=== PATIENT | female | born 1950 | race Caucasian/White ===

== ENCOUNTER 2021-01-17 08:45 | Outpatient (REF) | payer MEDICARE, SELFPAY ==
[2021-01-17 10:03] LABS: MANUAL DIFF FLAG NO
[2021-01-17 10:13] LABS: Basophils Percent Auto 0.4 % (0-2); Eosinophils Absolute Auto 0.2 X10*3/uL (0.0-0.4); Hematocrit 36.8 % (37-47); Hemoglobin 12.5 g/dl (12.0-16.0); Imm Gran Abs Auto 0.01 X10*3/uL (0.00-0.03); Imm Gran Pct Auto 0.2 % (0.0-0.4); Lymphocytes Absolute Auto 1.1 X10*3/uL (1.2-4.9); Mean Corpuscular Hemoglobin 34.2 pg (27.0-33.0); Mean Corpuscular Volume 100.5 fL (80-98); Monocytes Absolute Auto 0.5 X10*3/uL (0.1-1.2); Monocytes Percent Auto 10.4 % (2-11); Platelet Count 162 X10*3/uL (160-400); Red Blood Count 3.66 X10*6/uL (4.20-5.50); Red Cell Distribution Width 12.2 % (11.0-16.0); White Blood Count 4.8 X10*3/uL (4.8-10.8)
[2021-01-17 10:24] LABS: Alanine Aminotransferase 20 U/L (0-31); Albumin Level 4.6 g/dL (3.5-5.0); Alkaline Phosphatase 41 U/L (39-117); Anion Gap 15 (12-20); Aspartate Amino Transferase 21 U/L (5-31); Bilirubin Direct 0.4 mg/dL (0.0-0.5); Bilirubin Total 0.8 mg/dL (0.0-1.0); Blood Urea Nitrogen 6 mg/dL (9-16); Carbon Dioxide 29 mmol/L (22-29); Chloride 94 mmol/L (96-108); Estimated Glomerular Filt Rate > 60; Glucose Random 105 mg/dL (60-115); Potassium 4.6 mmol/L (3.3-5.1); Sodium 133 mmol/L (135-145); Total Protein 6.9 g/dL (6.5-8.0)
[2021-01-17 10:37] LABS: Magnesium 1.4 mg/dL (1.6-2.6)
[2021-01-17 10:44] LABS: Thyroid Stimulating Hormone 1.13 uIU/mL (0.32-4.0)
[2021-01-17 10:46] LABS: Glucose Urine UA NEG (NEG); Leukocyte Esterase Urine 1+ (NEG); Nitrite Urine NEG (NEG); PH 7.5 (5.0-8.0); Urine Blood NEG (NEG); Urine Ketones NEG (NEG); Urine Protein NEG (NEG-TRACE)
[2021-01-17 10:49] LABS: Appearance Urine CLEAR; Color Urine YELLOW
[2021-01-17 11:03] LABS: Bacteria Urine 2+ /LPF; RBC Urine 0 /HPF (0); Squamous Epithelial Cell Urine 3+ /LPF
== END 2021-01-17 08:46 | disposition home or self-care (01) ==
LOC: HO.LAB 08:45
PROVIDERS: PCP Internal Medicine; Visit Provider Internal Medicine Cardiovascular Disease
DX: I25.10 Atherosclerotic heart disease of native coronary artery without angina pectoris (principal); I10 Essential (primary) hypertension; E78.2 Mixed hyperlipidemia; E11.9 Type 2 diabetes mellitus without complications
CPT/HCPCS: 36415; 80051; 80076; 81001; 82565; 82947; 83735; 84443; 84520; 85025

== ENCOUNTER 2021-04-19 15:28 | Emergency (ER) | payer MEDICARE, SELFPAY ==
[2021-04-19 15:37] VITALS: BP 174/93; PULSE 74; RESP 18; TEMP 36.9; O2SAT 98; BMI 24.2
--- NOTE | 2021-04-19 16:16 | ECG_ITS ---
Test Reason : ABNORMAL LAB Blood Pressure : / mmHG Vent. Rate : 071 BPM Atrial Rate : 071 BPM P-R Int : 194 ms QRS Dur : 080 ms QT Int : 386 ms P-R-T Axes : 078 030 067 degrees QTc Int : 419 ms Normal sinus rhythm Normal ECG When compared with ECG of 30-JUL-2018 16:03, No significant change was found Referred By: Marcie Curtis Electronically Signed By:ELEONORA TAN
--- NOTE | 2021-04-19 16:19 | ED_ITS ---
HPI - Recheck/Abnormal Lab/Rx General Chief Complaint: Recheck/Abnormal Lab/Rx Stated Complaint: abnormal labs Time Seen by Provider: 04/19/21 16:10 Source: patient Mode of arrival: ambulatory History of Present Illness HPI narrative: 70-year-old female with a past medical history of GERD, HTN, HLD, sent in by PCP for hyperkalemia noted to be 8.5 on outpatient labs today. Patient denies symptoms at this time. Reports was being seen for routine visit. Denies CP/SOB, abdominal pain, nausea /vomiting, diarrhea, fever, chills, numbness, tingling, weakness complaint: abnormal lab Related Data Allergies Allergy/AdvReac Type Severity Reaction Status Date / Time No Known Allergies Allergy Verified 04/19/21 15:37 Review of Systems Review of Systems: Constitutional: No Fever, No Chills, No Fatigue, No Malaise Eyes: No Eye Pain, No Vision Changes Cardiovascular: No Chest Pain, No SOB, No Edema, No Palpitations Respiratory: No Cough, No Sputum, No Wheezing, No Smoke Exposure, No Dyspnea Gastrointestinal: No Nausea, No Vomiting, No Diarrhea, No Constipation, No Abdominal pain Genitourinary: No Dysuria, No Urinary Frequency Musculoskeletal: No joint pain, No Myalgias Skin: No Skin Lesions, No rash Neuro: No Weakness, No Numbness, No Paresthesias, No Headache Yes all other systems are reviewed and are negative [facility] Past Medical History Attestation statement: The following information was validated with the patient. Medical History (Updated 04/19/21 @ 17:43 by ALANNA Gipson) GERD (gastroesophageal reflux disease) High blood pressure High cholesterol Social History Social History Advance Directives: No Advance Directives Information Provided: No Physical Exam Vital Signs: Vital Signs: Last Vital Signs Temp 98.5 F 04/19/21 15:37 Pulse 74 04/19/21 15:37 Resp 18 04/19/21 15:37 BP 174/93 H 04/19/21 15:37 Pulse Ox 98 04/19/21 15:37 Body Mass Index 24.2 Const: General: cooperative, healthy appearing and no acute distress Orientation/consciousness: patient oriented x3 Limitations: no limitations HENMT: Head: Yes normal to inspection Ears: hearing grossly normal bilaterally General nose exam: Normal external nose present Face and sinus: Yes normal facial exam Eyes: General: appearance normal, both eyes and all related structures EOM: EOMs intact bilaterally Neck: Neck: Yes normal visual inspection and Yes no meningeal signs Resp: Effort & Inspection: normal respiratory effort Auscultation: clear to auscultation bilaterally, no rales, no rhonchi and no wheezes Cardio: Rate: regular rate Heart sounds: S1 normal heart sound present and S2 normal heart sound present GI: Inspection: Yes normal to inspection Palpation (GI): Soft to palpation, nontender, no guarding and not rigid Skin: Rashes: no rashes Wounds: no wounds Neuro: General: patient oriented x3, gait normal, tone normal and no meningeal signs Gait exam (Neuro): Normal gait present Extrem: General: Yes normal to inspection Course Course Course Narrative: - H&H stable, chronic hyponatremia. Potassium WNL. Magnesium low 1.4 >> IV repletion ordered results discussed with patient including worrisome signs and symptoms and strict return precautions, she verbalized understanding feel safe for discharge home MDM - Recheck/Abnormal Lab/Rx MDM Narrative Medical decision making narrative: 70-year-old female with a past medical history of GERD, HTN, HLD, sent in by PCP for hyperkalemia noted to be 8.5 on outpatient labs today. On exam VSS, NAD, well appearing, nontoxic, asymptomatic at this time. No history of renal failure. Possibly from Losartan. 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 Lab Data Attestation: I reviewed the patient's lab results. Result diagrams: 04/19/21 16:24 04/19/21 16:24 Labs: Lab Results 04/19/21 04/19/21 Range/Units 16:24 16:24 WBC 4.5 L (4.8-10.8) X10*3/uL RBC 3.24 L (4.20-5.50) X10*6/uL Hgb 11.1 L (12.0-16.0) g/dl Hct 32.0 L (37-47) % MCV 98.8 H (80-98) fL MCH 34.3 H (27.0-33.0) pg MCHC 34.7 (31.0-35.0) g/dl RDW 12.4 (11.0-16.0) % Plt Count 146 L (160-400) X10*3/uL MPV 10.1 (9.4-12.3) fL Immature Gran % (Auto) 0.2 (0.0-0.4) % Neut % (Auto) 54.1 (45-73) % Lymph % (Auto) 31.1 (20-40) % [place] % (Auto) 10.4 (2-11) % Eos % (Auto) 4.0 (0-4) % Baso % (Auto) 0.2 (0-2) % Lymph # (Auto) 1.4 (1.2-4.9) X10*3/uL [place] # (Auto) 0.5 (0.1-1.2) X10*3/uL Eos # (Auto) 0.2 (0.0-0.4) X10*3/uL Baso # (Auto) 0.0 (0.0-0.2) X10*3/uL Abs Immat Gran (auto) 0.01 (0.00-0.03) X10*3/uL Absolute Neuts (auto) 2.4 (2.0-8.3) X10*3/uL Absolute Nucleated RBC 0.000 (0.0-0.012) X10*3/uL Nucleated RBC % (auto) 0.0 (0.0-0.2) /100WBC Sodium 126 L (135-145) mmol/L Potassium 4.2 (3.3-5.1) mmol/L Chloride 91 L (96-108) mmol/L Carbon Dioxide 21 L (22-29) mmol/L Anion Gap 18 (12-20) BUN 6 L (9-16) mg/dL Creatinine 0.64 (0.5-1.4) mg/dL Estim Creat Clear Calc 63.3 Estimated GFR > 60 Random Glucose 74 (60-115) mg/dL Calcium 9.3 (8.4-10.2) mg/dL Magnesium 1.4 L* (1.6-2.6) mg/dL Total Bilirubin 0.6 (0.0-1.0) mg/dL Direct Bilirubin 0.3 (0.0-0.5) mg/dL AST 27 (5-31) U/L ALT 22 (0-31) U/L Alkaline Phosphatase 39 (39-117) U/L Total Protein 6.9 (6.5-8.0) g/dL Albumin 4.6 (3.5-5.0) g/dL ECG Data Attestation: I personally reviewed and interpreted this ECG as follows: ECG interpretation date: 04/19/21 ECG interpretation time: 16:34 Interpretation: EKG normal sinus rhythm 3-71. QTC 419. Nonischemic-no STEMI Discharge Plan Discharge Clinical Impression: Chronic hyponatremia, Hypomagnesemia Patient Disposition: Home, Self-Care Instructions: Hypomagnesemia (ED) Additional Instructions: your magnesium was slightly low today, you were given repletion through the IV otherwise her blood work is at her baseline Continue to take her home prescribed medications You should follow-up with her primary care doctor to have repeat blood work in a week if you develop chest pain, shortness of breath, numbness, tingling, weakness, diarrhea or vomiting please return to the ED Referrals: Carisa Orr MD [Primary Care Provider] - 5 days
[2021-04-19] MEDS: 0.9 % Sodium Chloride 1,000 ML 999 ML IVCONT (16:25)
[2021-04-19 16:34] LABS: MANUAL DIFF FLAG NO
[2021-04-19 16:36] LABS: Basophils Percent Auto 0.2 % (0-2); Eosinophils Absolute Auto 0.2 X10*3/uL (0.0-0.4); Hemoglobin 11.1 g/dl (12.0-16.0); Imm Gran Abs Auto 0.01 X10*3/uL (0.00-0.03); Imm Gran Pct Auto 0.2 % (0.0-0.4); Lymphocytes Absolute Auto 1.4 X10*3/uL (1.2-4.9); Lymphocytes Percent Auto 31.1 % (20-40); Mean Corpuscular HGB Conc 34.7 g/dl (31.0-35.0); Mean Corpuscular Hemoglobin 34.3 pg (27.0-33.0); Mean Corpuscular Volume 98.8 fL (80-98); Mean Platelet Volume 10.1 fL (9.4-12.3); Monocytes Absolute Auto 0.5 X10*3/uL (0.1-1.2); Monocytes Percent Auto 10.4 % (2-11); Neutrophils Absolute Auto 2.4 X10*3/uL (2.0-8.3); Neutrophils Percent Auto 54.1 % (45-73); Platelet Count 146 X10*3/uL (160-400); Red Blood Count 3.24 X10*6/uL (4.20-5.50); Red Cell Distribution Width 12.4 % (11.0-16.0); White Blood Count 4.5 X10*3/uL (4.8-10.8)
[2021-04-19 17:01] LABS: Alanine Aminotransferase 22 U/L (0-31); Albumin Level 4.6 g/dL (3.5-5.0); Alkaline Phosphatase 39 U/L (39-117); Anion Gap 18 (12-20); Aspartate Amino Transferase 27 U/L (5-31); Bilirubin Direct 0.3 mg/dL (0.0-0.5); Bilirubin Total 0.6 mg/dL (0.0-1.0); Blood Urea Nitrogen 6 mg/dL (9-16); Calcium 9.3 mg/dL (8.4-10.2); Carbon Dioxide 21 mmol/L (22-29); Chloride 91 mmol/L (96-108); Creatinine Clr Calc Pharmacy 63.3; Estimated Glomerular Filt Rate > 60; Glucose Random 74 mg/dL (60-115); Magnesium 1.4 mg/dL (1.6-2.6); Potassium 4.2 mmol/L (3.3-5.1); Sodium 126 mmol/L (135-145); Total Protein 6.9 g/dL (6.5-8.0)
[2021-04-19] MEDS: Magnesium Sulfate/H2O 2 GM/50 ML PIGGYBACK IV (17:09)
[2021-04-19 18:00] VITALS: BP 130/84; PULSE 84; RESP 18; O2SAT 100
== END 2021-04-19 18:16 | disposition home or self-care (01) ==
PROVIDERS: Physician Assistant; Emergency Provider Emergency Medicine; PCP Internal Medicine
DX: E87.1 Hypo-osmolality and hyponatremia (principal); E83.42 Hypomagnesemia; E87.5 Hyperkalemia; I10 Essential (primary) hypertension
CPT/HCPCS: 36415; 80048; 80076; 83735; 85025; 93005; 96361; 96365; 96366; 99284; J3475

== ENCOUNTER 2021-05-08 15:29 | Emergency (ER) | payer MEDICARE, SELFPAY ==
--- NOTE | 2021-05-08 | ECG_ITS ---
Test Reason : ABNORMAL LABS Blood Pressure : / mmHG Vent. Rate : 078 BPM Atrial Rate : 078 BPM P-R Int : 196 ms QRS Dur : 080 ms QT Int : 366 ms P-R-T Axes : 060 038 070 degrees QTc Int : 417 ms Normal sinus rhythm Normal ECG When compared with ECG of 19-APR-2021 16:34, No significant change was found Referred By: Generic ED Physician Electronically Signed By:
[2021-05-08 15:55] VITALS: BP 163/77; PULSE 80; RESP 18; TEMP 37; O2SAT 99; BMI 25.3
[2021-05-08 17:45] LABS: MANUAL DIFF FLAG NO
[2021-05-08 17:52] LABS: Basophils Percent Auto 0.2 % (0-2); Eosinophils Absolute Auto 0.2 X10*3/uL (0.0-0.4); Eosinophils Percent Auto 5.5 % (0-4); Hematocrit 31.6 % (37-47); Imm Gran Abs Auto 0.01 X10*3/uL (0.00-0.03); Imm Gran Pct Auto 0.2 % (0.0-0.4); Lymphocytes Absolute Auto 1.3 X10*3/uL (1.2-4.9); Lymphocytes Percent Auto 30.3 % (20-40); Mean Corpuscular HGB Conc 34.8 g/dl (31.0-35.0); Mean Corpuscular Hemoglobin 34.9 pg (27.0-33.0); Mean Corpuscular Volume 100.3 fL (80-98); Mean Platelet Volume 9.8 fL (9.4-12.3); Monocytes Absolute Auto 0.5 X10*3/uL (0.1-1.2); Monocytes Percent Auto 11.1 % (2-11); Neutrophils Absolute Auto 2.2 X10*3/uL (2.0-8.3); Neutrophils Percent Auto 52.7 % (45-73); Platelet Count 146 X10*3/uL (160-400); Red Blood Count 3.15 X10*6/uL (4.20-5.50); Red Cell Distribution Width 12.4 % (11.0-16.0); White Blood Count 4.2 X10*3/uL (4.8-10.8)
[2021-05-08 18:14] LABS: Alanine Aminotransferase 14 U/L (0-31); Albumin Level 4.4 g/dL (3.5-5.0); Alkaline Phosphatase 43 U/L (39-117); Anion Gap 15 (12-20); Aspartate Amino Transferase 19 U/L (5-31); Bilirubin Total 0.3 mg/dL (0.0-1.0); Blood Urea Nitrogen 6 mg/dL (9-16); Calcium 9.1 mg/dL (8.4-10.2); Carbon Dioxide 26 mmol/L (22-29); Chloride 95 mmol/L (96-108); Creatinine Clr Calc Pharmacy 49.4; Estimated Glomerular Filt Rate > 60; Glucose Random 101 mg/dL (60-115); Potassium 4.9 mmol/L (3.3-5.1); Sodium 131 mmol/L (135-145); Total Protein 6.6 g/dL (6.5-8.0)
[2021-05-08 18:33] LABS: Magnesium 1.5 mg/dL (1.6-2.6)
[2021-05-08 20:18] VITALS: BP 191/95; PULSE 73; RESP 16; O2SAT 99
--- NOTE | 2021-05-08 20:24 | ED_ITS ---
HPI - General Adult General Chief complaint: Recheck/Abnormal Lab/Rx Stated complaint: abnormal labs Time Seen by Provider: 05/08/21 18:16 Source: patient and family Mode of arrival: ambulatory Limitations: no limitations History of Present Illness HPI narrative: 71-year-old female came in from PCP office for evaluation of low potassium. Patient otherwise has no complain in the emergency department, patient takes medication for high blood pressure, patient did not take her medication today. Blood pressure in the emergency department found to be high but no headache, no blurry vision, no chest pain, no abdominal pain. Patient was advised to take her medication when she gets home. Related Data Allergies Allergy/AdvReac Type Severity Reaction Status Date / Time No Known Allergies Allergy Verified 04/19/21 15:37 Review of Systems Review of Systems: All other systems are reviewed and are negative Constitutional: Reports as per HPI and Reports no additional constitutional complaints Eyes: Reports as per HPI and Reports no additional eye complaints Reports system reviewed and no additional complaints, except as documented Cardiovascular: Reports as per HPI and Reports no additional cardiovascular complaints Respiratory: Reports as per HPI and Reports no additional respiratory complaints Gastrointestinal: Reports as per HPI and Reports no additional gastrointestinal complaints Genitourinary: Reports no additional female genitourinary complaints Musculoskeletal: Reports no additional musculoskeletal complaints Skin/Breast: Reports system reviewed and no additional complaints, except as docu Psychiatric: Reports no additional psychiatric complaints Endocrine: Reports no additional endocrine complaints Hematologic/Lymphatic: Reports no additional hematologic/lymphatic complaints Allergic/Immunologic: Reports no additional allergic/immunologic complaints Reports system reviewed and no additional complaints, except as documented and Reports Abnormal speech present [facility] Past Medical History Medical History GERD (gastroesophageal reflux disease) High blood pressure High cholesterol Social History Social History Advance Directives: No Advance Directives Information Provided: Yes Physical Exam Vital Signs: Vital Signs: Last Vital Signs Temp 98.6 F 05/08/21 15:55 Pulse 73 05/08/21 20:18 Resp 16 05/08/21 20:18 BP 191/95 H 05/08/21 20:18 Pulse Ox 99 05/08/21 20:18 Body Mass Index 25.3 Vital signs have been reviewed as appeared to be correct. Blood pressure elevated. Heart rate normal. Respiration rate normal. Temperature normal. Oxygen saturation normal. Appearance: Alert. Oriented X3. No acute distress. Head: Normal external exam. Normocephalic. Atraumatic. No [place] signs noted. No raccoon eyes noted Eyes: PERRLA. EOMI. Conjunctiva and sclera normal. Eyelids normal. ENT: TM's Normal. Pharynx normal. Uvula midline. Moist mucous membranes. No trismus noted. No drooling noted. No muffled voice noted. Neck: Normal inspection. Neck supple. FROM. No adenopathy. Thyroid Normal. No meningeal signs. No neck mass noted. CVS: Normal heart rate and rhythm. Heart sound normal. No murmurs noted. Pulses normal throughout. Respiratory: No respiratory distress. Painless inspiration. Breath sounds normal. No wheezes/rales/rhonchi noted. Chest nontender. No accessory muscle usage noted or decreased air movement noted. Abdomen: Soft and nontender. Bowel sounds normal in all 4 quadrants. No distention noted. No organomegaly noted. No visible injury noted. Back: No CVA tenderness. Full range of motion noted. Skin: Skin warm and dry. Normal skin color. Normal skin turgor. No rashes/lesions/lacerations noted. Extremities: No lower extremity edema. Extremities exhibit normal range of motion. Extremities nontender. Neuro: Oriented X 3. No motor deficit. No sensory deficit. Reflexes normal. Course Course Course Narrative: Assessment and plan. Came in for evaluation of hypokalemia. Normal potassium, no EKG changes, slightly low magnesium which was replaced by p.o. magnesium in the emergency department. Mild hyponatremia which appeared to be chronic. High blood pressure with no symptoms patient was instructed to take her medication when she gets off Medical Decision Making Lab Data Lab results reviewed: Yes I reviewed the patient's lab results. Result diagrams: 05/08/21 17:40 05/08/21 17:40 Labs: Lab Results 05/08/21 05/08/21 Range/Units 17:40 17:40 WBC 4.2 L (4.8-10.8) X10*3/uL RBC 3.15 L (4.20-5.50) X10*6/uL Hgb 11.0 L (12.0-16.0) g/dl Hct 31.6 L (37-47) % MCV 100.3 H (80-98) fL MCH 34.9 H (27.0-33.0) pg MCHC 34.8 (31.0-35.0) g/dl RDW 12.4 (11.0-16.0) % Plt Count 146 L (160-400) X10*3/uL MPV 9.8 (9.4-12.3) fL Immature Gran % (Auto) 0.2 (0.0-0.4) % Neut % (Auto) 52.7 (45-73) % Lymph % (Auto) 30.3 (20-40) % [place] % (Auto) 11.1 H (2-11) % Eos % (Auto) 5.5 H (0-4) % Baso % (Auto) 0.2 (0-2) % Lymph # (Auto) 1.3 (1.2-4.9) X10*3/uL [place] # (Auto) 0.5 (0.1-1.2) X10*3/uL Eos # (Auto) 0.2 (0.0-0.4) X10*3/uL Baso # (Auto) 0.0 (0.0-0.2) X10*3/uL Abs Immat Gran (auto) 0.01 (0.00-0.03) X10*3/uL Absolute Neuts (auto) 2.2 (2.0-8.3) X10*3/uL Absolute Nucleated RBC 0.000 (0.0-0.012) X10*3/uL Nucleated RBC % (auto) 0.0 (0.0-0.2) /100WBC Sodium 131 L (135-145) mmol/L Potassium 4.9 (3.3-5.1) mmol/L Chloride 95 L (96-108) mmol/L Carbon Dioxide 26 (22-29) mmol/L Anion Gap 15 (12-20) BUN 6 L (9-16) mg/dL Creatinine 0.86 (0.5-1.4) mg/dL Estim Creat Clear Calc 49.4 Estimated GFR > 60 Random Glucose 101 D (60-115) mg/dL Calcium 9.1 (8.4-10.2) mg/dL Magnesium 1.5 L (1.6-2.6) mg/dL Total Bilirubin 0.3 (0.0-1.0) mg/dL AST 19 (5-31) U/L ALT 14 (0-31) U/L Alkaline Phosphatase 43 (39-117) U/L Total Protein 6.6 (6.5-8.0) g/dL Albumin 4.4 (3.5-5.0) g/dL ECG Data Interpretation: Normal sinus rhythm at 76 beats per minute, normal intervals, normal axis deviation, no ST-T changes. Discharge Plan Discharge Clinical Impression: Low blood magnesium Hypertension Qualifiers: Hypertension type: unspecified Qualified Code(s): I10 - Essential (primary) hypertension Patient Disposition: Home, Self-Care Instructions: Hypomagnesemia (ED) Additional Instructions: Take your blood pressure medication when at home. Check with your primary doctor to repeat your electrolytes in 1 week. Referrals: Carisa Orr MD [Primary Care Provider] - 2 days
--- NOTE | 2021-05-08 20:26 | PC.NURSE ---
BP 191/95 MD aware, at bedside
[2021-05-08] MEDS: Magnesium Oxide 400 MG TABLET 800 MG PO (20:49)
== END 2021-05-08 20:51 | disposition home or self-care (01) ==
PROVIDERS: Emergency Provider Emergency Medicine; PCP Internal Medicine
DX: E87.6 Hypokalemia (principal); I10 Essential (primary) hypertension; E78.5 Hyperlipidemia, unspecified; Z79.899 Other long term (current) drug therapy
CPT/HCPCS: 36415; 80053; 83735; 85025; 93005; 99284

== ENCOUNTER 2021-10-10 09:59 | Outpatient (REF) | payer MEDICARE, SELFPAY ==
[2021-10-10 11:22] LABS: COVID-19 Test Negative (Negative)
== END 2021-10-10 10:00 | disposition home or self-care (01) ==
LOC: HO.LAB 09:59
PROVIDERS: Visit Provider Internal Medicine
DX: Z20.822 Contact with and (suspected) exposure to COVID-19 (principal)
CPT/HCPCS: 36415; 87635; C9803

== ENCOUNTER 2022-02-12 08:01 | Day surgery (SDC) | payer MEDICARE, OTHER, SELFPAY ==
[2022-02-06 13:08] VITALS: BMI 25.0
--- NOTE | 2022-02-09 10:36 | MHC.SHP ---
Pre-Procedural Eval Section A Date of Service: 02/09/22 The patient is an INPATIENT: No Changes since office visit: No Cold of Flu in the past 2 weeks, No New Medical Problems, No Changes in Medication and No Patient answered all questions The History & Physical has been completed within 30 days and I have reviewed it.: Yes Section B Chief Complaint: Age-related nuclear cataract, right eye Allergies: Allergies Allergy/AdvReac Type Severity Reaction Status Date / Time lisinopril AdvReac Cough Verified 02/06/22 13:02 Plan Diagnosis/Plan: Unchanged I have reviewed the history and physical and performed a pertinent physical examination on my patient. No changes have occurred unless specified.
--- NOTE | 2022-02-09 12:17 | HO.ANESPROP2 ---
Documented by User: Pattie Larson NP 02/09/22 12:18 HPI - Anesthesia Eval Consult details Narrative: 71yo F for Right Cataract Extraction IOL Insertion PCP Cleared No previous cataract on record [facility] Past Medical History Medical History Allergic rhinitis CAD (coronary artery disease) DM II (diabetes mellitus, type II), controlled GERD (gastroesophageal reflux disease) Glaucoma High blood pressure High cholesterol Osteoarthritis Surgical History Surgical History History of eye surgery History of heart artery stent History of tonsillectomy History of tubal ligation Social History Social History Are you a primary respiratory care program director to a significant other at home: No Do you presently have visiting nurse or other home services: No Patient Tobacco Use Status: Former Tobacco user Quit Date: Age 53 Use of substances other than those prescribed or required for medical reasons: No Have you been hit, kicked, punched, or otherwise hurt by someone within the past year? If so, by whom?: No Are you DNR?: No Advance Directives: No Advance Directives Information Provided: Yes Advance Directives on File: No Recently lost weight without trying: No Eating poorly because of decreased appetite: No Nutrition Risks: No Nutritional Risk Meds Allergies Allergy/AdvReac Type Severity Reaction Status Date / Time lisinopril AdvReac Cough Verified 02/06/22 13:02 Home Medications Medication Instructions Recorded Confirmed Last Taken Type aspirin 81 mg capsule 81 mg PO DAILY 01/25/22 01/25/22 Unknown History atorvastatin 80 mg tablet 1 tab PO DAILY 01/25/22 01/25/22 Unknown History calcium carbonate 600 mg-vitamin 1 tab PO DAILY 01/25/22 01/25/22 Unknown History D3 10 mcg (400 unit) tablet (Calcium 600 + D(3)) carvedilol 12.5 mg tablet 1 tab PO BID 01/25/22 01/25/22 02/12/22 History fluticasone propionate 50 1 spray INTRANASAL BID 01/25/22 01/25/22 Unknown History mcg/actuation nasal spray,suspension losartan 50 mg tablet 1 tab PO DAILY 01/25/22 01/25/22 Unknown History metformin 1,000 mg tablet 1 tab PO BID 01/25/22 01/25/22 Unknown History Exam Exam Date and Time: February 09, 2022 1217 Height,Weight and Vital Signs: Height 5 ft Weight 58.06 kg Assessment and Plan Assessment Anesthesia Assessment: Chart Reviewed Documented by User: Adi Montano MD 02/12/22 08:37 [facility] Past Medical History Medical History Allergic rhinitis CAD (coronary artery disease) DM II (diabetes mellitus, type II), controlled GERD (gastroesophageal reflux disease) Glaucoma High blood pressure High cholesterol Osteoarthritis Family History Family history of problems with anesthesia: No Surgical History Surgical History History of eye surgery History of heart artery stent History of tonsillectomy History of tubal ligation History of Problems with Anesthesia: No Social History Social History Are you a primary respiratory care program director to a significant other at home: No Do you presently have visiting nurse or other home services: No Patient Tobacco Use Status: Former Tobacco user Quit Date: Age 53 Use of substances other than those prescribed or required for medical reasons: No Have you been hit, kicked, punched, or otherwise hurt by someone within the past year? If so, by whom?: No Are you DNR?: No Advance Directives: No Advance Directives Information Provided: Yes Advance Directives on File: No Recently lost weight without trying: No Eating poorly because of decreased appetite: No Nutrition Risks: No Nutritional Risk Meds Allergies Allergy/AdvReac Type Severity Reaction Status Date / Time lisinopril AdvReac Cough Verified 02/06/22 13:02 Home Medications Medication Instructions Recorded Confirmed Last Taken Type aspirin 81 mg capsule 81 mg PO DAILY 01/25/22 01/25/22 Unknown History atorvastatin 80 mg tablet 1 tab PO DAILY 01/25/22 01/25/22 Unknown History calcium carbonate 600 mg-vitamin 1 tab PO DAILY 01/25/22 01/25/22 Unknown History D3 10 mcg (400 unit) tablet (Calcium 600 + D(3)) carvedilol 12.5 mg tablet 1 tab PO BID 01/25/22 01/25/22 02/12/22 History fluticasone propionate 50 1 spray INTRANASAL BID 01/25/22 01/25/22 Unknown History mcg/actuation nasal spray,suspension losartan 50 mg tablet 1 tab PO DAILY 01/25/22 01/25/22 Unknown History metformin 1,000 mg tablet 1 tab PO BID 01/25/22 01/25/22 Unknown History Exam Airway Mallampati Class: II TM Dist: >3cm Neck ROM: Full Denture: Upper and Lower Loose/Missing/Broken Teeth: Yes Heart: [id number] Lungs: cta b/l Assessment and Plan Assessment Anesthesia Assessment: Anesthesia Plan Discussed Final Anesthetic Review Family History of Problems with Anesthesia: No History of Problems with Anesthesia: No NPO: Yes ASA Class: III Final Preanesthetic Review: No Changes in Pt Med Stat, Meds/Allgs Chart Reviewed, Consent Obtained/Reviewed and Anes Risks/Benef Reviewed Patient Risk: Intermediate Procedure Risk: Low Assessment/Block/Sedation in SS: Assess/Block/Sedation-SS Anesthetic Plan Anesthetic Plan: MAC: and Agree w/ Assess. and Plan Disposition: Standard PACU
[2022-02-12 08:24] VITALS: BP 150/91; PULSE 69; RESP 19; TEMP 36.1; O2SAT 96
[2022-02-12 08:34] LABS: Glucose, Whole Blood 93 mg/dL (60-115)
[2022-02-12] MEDS: Tetracaine HCl/PF 0.5% Oph Sol 4 ML DROPS 1 DROP EYE-RIGHT (08:38)
[2022-02-12] MEDS: Phenylephrine HCL 2.5% Oph SoL 2 ML BOTTLE 1 DROP EYE-RIGHT ×3 (08:39→08:43)
[2022-02-12] MEDS: Tropicamide 1 % Ophth Sol 3 ML BTL 1 DROP EYE-RIGHT ×3 (08:39→08:42)
[2022-02-12] MEDS: Lactated Ringers 500 ML 50 ML IV (08:40)
--- NOTE | 2022-02-12 10:12 | HO.PNOPHT ---
Ophthalmology Procedure Procedure Date of Service: 02/12/22 Ophthalmology Viscoelastic: Sabra Chunt Dual Pack Pro Ophthalmology Lenses: TECYOLY [id number] (26) Procedure Notes: PREOPERATIVE DIAGNOSIS: Decreased visual acuity right eye secondary to cataract POSTOPERATIVE DIAGNOSIS: Same PROCEDURE: Right cataract extraction with intraocular lens insertion SURGEON: Cesar Walker M.D. ANESTHESIA: Topical/MAC ESTIMATED BLOOD LOSS: None COMPLICATIONS: None After obtaining informed consent, the patient was brought to the operating room suite and placed in the supine position. After adequate sedation per anesthesia, topical drops of Tetracaine were given to the right eye. The eye was then prepped and draped in the usual sterile fashion. The operating room microscope was then positioned over the operative eye and a lid speculum placed. A paracentesis was created. Viscoelastic was then instilled into the anterior chamber. A three plane incision was then created temporally, utilizing a 2.85 mm keratome. Capsulotomy forceps were then utilized to create a circular tear capsulotomy. Hydrodissection and hydrodelineation were carried out until adequate mobilization of the nucleus occurred. Phacoemulsification was then utilized to remove the dense central nucleus followed by removal of the cortical material utilizing the automated aspiration irrigation unit. Viscoelastic was instilled into the posterior capsular bag followed by placement of a posterior chamber intraocular lens without difficulty. The residual Viscoelastic was then removed utilizing the automated IA machine. The wound was checked and found to be watertight. The patient tolerated the procedure well and the lid speculum was removed. Intracameral injection of Vigamox 0.1 mL followed by a subtenon injection of Kenalog-40 0.2 mL were administered. The patient will be seen in the a.m.
[2022-02-12 10:41] VITALS: BP 121/65; PULSE 69; RESP 18; TEMP 36.9; O2SAT 96
== END 2022-02-12 11:00 | disposition home or self-care (01) ==
PROVIDERS: PCP Internal Medicine; Visit Provider Ophthalmology
PROC: (CPT 66985; principal; 2022-02-12 10:20)
DX: H25.11 Age-related nuclear cataract, right eye (principal); H54.7 Unspecified visual loss; H35.3111 Nonexudative age-related macular degeneration, right eye, early dry stage; H40.9 Unspecified glaucoma; I25.10 Atherosclerotic heart disease of native coronary artery without angina pectoris; Z98.61 Coronary angioplasty status; I10 Essential (primary) hypertension; E11.9 Type 2 diabetes mellitus without complications; E78.00 Pure hypercholesterolemia, unspecified; Z98.890 Other specified postprocedural states; Z79.84 Long term (current) use of oral hypoglycemic drugs; Z79.899 Other long term (current) drug therapy; Z87.891 Personal history of nicotine dependence
CPT/HCPCS: 66984; 82947; J2250; J3010; J3300; V2632

== ENCOUNTER 2023-01-28 06:47 | Emergency (ER) | payer MEDICARE, OTHER, SELFPAY ==
--- NOTE | ~2023-01-28 | US_ITS ---
EXAMINATION: US VENOUS ULTRASOUND WITH DOPPLER LOWER EXTREMITY, LEFT CLINICAL INFORMATION: Pain COMPARISON: None available. TECHNIQUE: Ultrasound of the deep veins is performed from the hip to the calf with compression sonography and color and pulse Doppler assessment. Spectral analysis with color-flow imaging is performed. FINDINGS: There is normal venous compression and respiratory variation and augmented flow. The visualized common femoral vein, superficial femoral vein, profunda femoral vein, popliteal vein, and the trifurcation region shows no evidence of deep venous thrombosis. There is no significant popliteal fossa cyst. There is a small amount of fluid adjacent to the medial knee. US/US venous duplex LE LT IMPRESSION: No DVT demonstrated in the left lower extremity.
[2023-01-28 07:09] VITALS: BP 149/73; PULSE 58; RESP 16; TEMP 36.9; O2SAT 100; BMI 24.1
[2023-01-28 08:02] LABS: MANUAL DIFF FLAG NO
--- NOTE | 2023-01-28 08:09 | ED.EXTPRO ---
HPI - Extremity Problem General Chief complaint: Extremity Problem Stated complaint: leg pain, body chills Time Seen by Provider: 01/28/23 07:08 Source: patient Mode of arrival: ambulatory Limitations: no limitations History of Present Illness HPI Narrative: 72-year-old female history of hypertension, diabetes came in for evaluation of left foot burning sensation. Symptoms started about 4-5 weeks ago as a constant burning sensation (heating sensation in the left foot) which is constant no exacerbating factor, no relieving factor, no fever or chills, no swelling of the left foot, no recent travel, no history of DVT. Related Data Home Medications Medication Instructions Recorded Confirmed aspirin 81 mg capsule 81 mg PO DAILY 01/25/22 01/25/22 atorvastatin 80 mg tablet 1 tab PO DAILY 01/25/22 01/25/22 calcium carbonate 600 mg-vitamin 1 tab PO DAILY 01/25/22 01/25/22 D3 10 mcg (400 unit) tablet (Calcium 600 + D(3)) carvedilol 12.5 mg tablet 1 tab PO BID 01/25/22 01/25/22 fluticasone propionate 50 1 spray intranasal BID 01/25/22 01/25/22 mcg/actuation nasal spray,suspension losartan 50 mg tablet 1 tab PO DAILY 01/25/22 01/25/22 metformin 1,000 mg tablet 1 tab PO BID 01/25/22 01/25/22 Previous Rx's Medication Instructions Recorded gabapentin 600 mg tablet 600 mg PO DAILY #14 tabs 01/28/23 Allergies Allergy/AdvReac Type Severity Reaction Status Date / Time lisinopril AdvReac Cough Verified 02/06/22 13:02 Review of Systems Review of Systems: All other systems are reviewed and are negative Constitutional: Reports as per HPI and Reports no additional constitutional complaints Eyes: Reports as per HPI and Reports no additional eye complaints Reports system reviewed and no additional complaints, except as documented Cardiovascular: Reports as per HPI and Reports no additional cardiovascular complaints Respiratory: Reports as per HPI and Reports no additional respiratory complaints Gastrointestinal: Reports as per HPI and Reports no additional gastrointestinal complaints Genitourinary: Reports no additional female genitourinary complaints Musculoskeletal: Reports no additional musculoskeletal complaints Skin/Breast: Reports system reviewed and no additional complaints, except as docu Psychiatric: Reports no additional psychiatric complaints Endocrine: Reports no additional endocrine complaints Hematologic/Lymphatic: Reports no additional hematologic/lymphatic complaints Allergic/Immunologic: Reports no additional allergic/immunologic complaints Reports system reviewed and no additional complaints, except as documented and Reports Abnormal speech present [facility] Past Medical History Medical History Allergic rhinitis CAD (coronary artery disease) DM II (diabetes mellitus, type II), controlled GERD (gastroesophageal reflux disease) Glaucoma High blood pressure High cholesterol Osteoarthritis Surgical History History of eye surgery History of heart artery stent History of tonsillectomy History of tubal ligation Social History Social History Are you a primary healthcare network consultant to a significant other at home: No Do you presently have visiting nurse or other home services: No Patient Tobacco Use Status: Former Tobacco user Quit Date: Age 53 Smoked in Last 30 Days: No Use of substances other than those prescribed or required for medical reasons: No Advance Directives: No Advance Directives Information Provided: Yes Physical Exam Vital Signs: Vital Signs: Last Vital Signs Temp 98.5 F 01/28/23 07:09 Pulse 58 01/28/23 07:09 Resp 16 01/28/23 07:09 BP 149/73 H 01/28/23 07:09 Pulse Ox 100 01/28/23 07:09 O2 Del Method Room Air 01/28/23 07:09 BMI result Body Mass Index 24.1 Vital signs have been reviewed as appeared to be correct. Blood pressure normal. Heart rate normal. Respiration rate normal. Temperature normal. Oxygen saturation normal. Appearance: Alert. Oriented X3. No acute distress. Head: Normal external exam. Normocephalic. Atraumatic. No [place] signs noted. No raccoon eyes noted Eyes: PERRLA. EOMI. Conjunctiva and sclera normal. Eyelids normal. ENT: TM's Normal. Pharynx normal. Uvula midline. Moist mucous membranes. No trismus noted. No drooling noted. No muffled voice noted. Neck: Normal inspection. Neck supple. FROM. No adenopathy. Thyroid Normal. No meningeal signs. No neck mass noted. CVS: Normal heart rate and rhythm. Heart sound normal. No murmurs noted. Pulses normal throughout. Respiratory: No respiratory distress. Painless inspiration. Breath sounds normal. No wheezes/rales/rhonchi noted. Chest nontender. No accessory muscle usage noted or decreased air movement noted. Abdomen: Soft and nontender. Bowel sounds normal in all 4 quadrants. No distention noted. No organomegaly noted. No visible injury noted. Back: No CVA tenderness. Full range of motion noted. Skin: Skin warm and dry. Normal skin color. Normal skin turgor. No rashes/lesions/lacerations noted. Extremities: No lower extremity edema. Extremities exhibit normal range of motion. Extremities nontender. Neuro: Oriented X 3. Cranial nerve exam: II-XII are grossly intact No motor deficit. No sensory deficit. Reflexes normal. Course Course Course Narrative: Left foot burning sensation for 4-5 weeks patient is diabetic the likely diagnosis is peripheral neuropathy. Negative workup for DVT or infection will discharge the patient recommend PCP to start patient on gabapentin and closer follow-up with patient's diabetes. Medical Decision Making Differential Diagnosis Differential Diagnoses: The differential diagnosis associated with the presentation includes (DVT, peripheral neuropathy, uncontrolled diabetes, electrolyte disturbance, severe anemia.) Lab Data MDM Lab Attestation statement: I reviewed the patient's lab results. 01/28/23 07:58 01/28/23 07:58 Independent Interpretation I performed an independent interpretation of an: Ultrasound (Left lower extremities ultrasound: No DVT.) Radiology Impression Discussion of test interpretation with radiology: I have reviewed the radiologist's reading. Discharge Plan Discharge Clinical Impression: Peripheral neuropathy Patient Disposition: Home, Self-Care Instructions: Peripheral Neuropathy (ED) Prescriptions: New gabapentin 600 mg tablet 600 mg PO DAILY Qty: 14 0RF No Action losartan 50 mg tablet 1 tab PO DAILY atorvastatin 80 mg tablet 1 tab PO DAILY carvedilol 12.5 mg tablet 1 tab PO BID metformin 1,000 mg tablet 1 tab PO BID fluticasone propionate 50 mcg/actuation spray,suspension 1 spray intranasal BID calcium carbonate-vitamin D3 [Calcium 600 + D(3)] 600 mg-10 mcg (400 unit) Tablet 1 tab PO DAILY aspirin 81 mg Capsule 81 mg PO DAILY
[2023-01-28 08:11] VITALS: BP 131/61; PULSE 58; RESP 14; TEMP 36.9; O2SAT 100
[2023-01-28 08:18] LABS: Anion Gap 15 (12-20); Blood Urea Nitrogen 9 mg/dL (9-16); Calcium 9.6 mg/dL (8.4-10.2); Carbon Dioxide 27 mmol/L (22-29); Chloride 99 mmol/L (96-108); Creatinine Clr Calc Pharmacy 58.6; Estimated Glomerular Filt Rate > 60; Glucose Random 105 mg/dL (60-115); Potassium 4.7 mmol/L (3.3-5.1); Sodium 136 mmol/L (135-145)
[2023-01-28 08:19] LABS: Basophils Percent Auto 0.5 % (0-2); Eosinophils Absolute Auto 0.5 X10*3/uL (0.0-0.4); Eosinophils Percent Auto 8.3 % (0-4); Hemoglobin 12.4 g/dl (12.0-16.0); Imm Gran Abs Auto 0.01 X10*3/uL (0.00-0.03); Imm Gran Pct Auto 0.2 % (0.0-0.4); Lymphocytes Absolute Auto 1.4 X10*3/uL (1.2-4.9); Lymphocytes Percent Auto 24.1 % (20-40); Mean Corpuscular HGB Conc 33.5 g/dl (31.0-35.0); Mean Corpuscular Hemoglobin 31.6 pg (27.0-33.0); Mean Corpuscular Volume 94.4 fL (80.0-98.0); Mean Platelet Volume 10.2 fL (9.4-12.3); Monocytes Absolute Auto 0.6 X10*3/uL (0.1-1.2); Monocytes Percent Auto 10.3 % (2-11); Neutrophils Absolute Auto 3.3 x10*3/uL (2.0-8.3); Neutrophils Percent Auto 56.6 % (45-73); Platelet Count 148 X10*3/uL (160-400); Red Blood Count 3.92 X10*6/uL (4.20-5.50); Red Cell Distribution Width 14.1 % (11.0-16.0); White Blood Count 5.8 X10*3/uL (4.8-10.8)
[2023-01-28] MEDS: Gabapentin 600 MG TABLET PO (09:08)
[2023-01-28 09:42] LABS: Appearance Urine Clear; Color Urine Dark Yellow; Glucose Urine UA Negative (Negative); Leukocyte Esterase Urine Trace (Negative); Nitrite Urine Negative (Negative); PH 8.5 (5.0-9.0); Specific Gravity - Urine 1.015 (1.005-1.025); UMIC TRIGGER UACC YES; Urine Blood Negative (Negative); Urine Ketones Trace mg/dL (Negative); Urine Protein Negative (Neg-Trace)
[2023-01-28 09:45] LABS: Bacteria Urine None Seen (None Seen); Hyaline Casts Urine 0-2 /LPF (0-2); RBC Urine 0-2 /HPF (0-2); Squamous Epithelial Cell Urine 0-2 /HPF (0-2); WBC Urine 0-5 /HPF (0-5)
== END 2023-01-28 11:12 | disposition home or self-care (01) ==
PROVIDERS: Emergency Provider Emergency Medicine
DX: E11.42 Type 2 diabetes mellitus with diabetic polyneuropathy (principal); M79.605 Pain in left leg; I10 Essential (primary) hypertension; E78.5 Hyperlipidemia, unspecified; Z79.82 Long term (current) use of aspirin; Z79.02 Long term (current) use of antithrombotics/antiplatelets; Z79.84 Long term (current) use of oral hypoglycemic drugs; Z79.899 Other long term (current) drug therapy
CPT/HCPCS: 36415; 80048; 81001; 85025; 93971; 99284

== ENCOUNTER 2024-06-18 07:59 | Outpatient (AMB) | payer MEDICARE, SELFPAY ==
--- NOTE | 2024-06-18 08:04 | MHC.OFFVIS ---
Vital Signs 06/18/24 08:06 Height 5 ft 2 in Weight 132 lb BMI 24.1 BP 124/72 Blood Pressure Location Rt brachial Position Sitting Pulse 63 Pulse Source Pulse Oximeter Pulse Oximetry (%) 98 Intake Visit Reasons: ENP-Peripheral neuropathy ? small-fiber neuropathy Intake Note: Patient presents for neuropathy symptoms. patient has pins and needles and swelling in the ankles. she also c/o her legs feeling hot. Allergies lisinopril Adverse Reaction (Verified 06/18/24 08:09) Cough Medication List - Last Reconciled 06/18/24 by RODERICK Fisher amlodipine 5 mg PO DAILY aspirin 81 mg PO DAILY atorvastatin 1 tab PO DAILY calcium carbonate-vitamin D3 600 mg-10 mcg (400 unit) (Calcium 600 + D(3)) 1 tab PO DAILY carvedilol 1 tab PO BID fluticasone propionate 50 mcg/actuation 1 spray intranasal BID gabapentin 300 mg PO TID losartan 1 tab PO DAILY metformin 1 tab PO BID HPI Comments Details: 74-yr-old female presents for neurological evaluation of possible small fiber neuropathy. PMH: diabetes x's many yrs- well-controlled, HTN- well-controlled, a-fib, HLD, CAD, OA, allergic rhinitis, Rosacea, remote h/o hypomagnesia. Pt reports she has been having BLE bottom of foot spasms/discomfort x's ~2yrs. This has not been progressing. Has muscle spasms/cramps in sole of foot, but also ankle and calves- not every night, but at times. Often triggered by stretching. The discomfort is in the sole of the foot, it is difficult to describe, maybe like prickly discomfort but denies pins and needles or creepy crawling sensation. She also feels heat in the distal BLE. In the past she did have ankle swelling. She denies redness. She was started on Gabapentin, and she is not sure if this is helpful or not- but it does diminish the heat sensation. She is worried about long-term effects of Gabapnetin. Nov 2023, BLE EMG/NCS- normal. Recently saw vascular, Dr Dante Hector, and had BLE venous intervention. Denies - numbness, lightheadedness, weakness, skin color changes, skin ulcers/rashes. [facility] Medical History (Updated 06/18/24 @ 16:26 by RODERICK Fisher) Neuropathy Diabetes Osteoarthritis Allergic rhinitis CAD (coronary artery disease) Glaucoma DM II (diabetes mellitus, type II), controlled High cholesterol High blood pressure GERD (gastroesophageal reflux disease) Surgical History History of eye surgery History of heart artery stent History of tubal ligation History of tonsillectomy Social History Are you a primary career services representative to a significant other at home: No Do you presently have visiting nurse or other home services: No Patient Tobacco Use Status: Former Tobacco user Physical Exam Vital Signs: Last Vital Signs Pulse 63 06/18/24 08:06 BP 124/72 06/18/24 08:06 Pulse Ox 98 06/18/24 08:06 BMI result Body Mass Index 24.1 Const General: cooperative and no acute distress Orientation/consciousness: patient oriented x3 HEENT Head: Yes normocephalic Resp Effort & Inspection: normal respiratory effort and able to speak in complete sentences Neuro Other: Able to take several steps on toes and a few steps on heels. BLE/feet- warm to touch. CMS + w/o edema, discoloration. General: patient oriented x3, tone normal, moves all extremities, Normal light touch and pain sensation (normal vibration sensation), CN's II-XI intact bilaterally, normal sensation to monofilament and deep tendon reflexes 2+ bilaterally Gait exam (Neuro): Normal gait present Motor exam (neuro): 5/5 motor strength present throughout Psych Appearance: grossly normal Mental Status: mental status grossly normal Speech and movement: Normal speech and movement present Affect: normal affect Attitude: cooperative Thought process: Normal thought process present Thought content: Normal thought content present Insight: Good insight present (Psych) Assessment & Plan Assessment & Plan (1) Peripheral neuropathic pain: Comment: likely small fiber neuropathy- ? chronic diabetes, which can occur even in well-controlled diabetes. ? vascular effects. Code(s): M79.2 - Neuralgia and neuritis, unspecified Category: Medical (2) Muscle cramps: Code(s): R25.2 - Cramp and spasm Category: Medical Plan Reviewed BLE EMG/NCS- no evidence for large fiber neuropathy. Continue Gabapentin 300mg po tid, as it does appear that she is tolerating it well and having some benefit from use. Check labs for common etiologies of likely small fiber neuropathy. Will request notes from Dr Hector [facility], [address] [facility] [address], [place] [address], Phone:? Pt seen in collaboration w/ Dr Janett Hendricks. Orders: Orders Complete Blood Count Auto Diff Today E11.9 - Type 2 diabetes mellitus without complications, G62.9 - Polyneuropathy, unspecified, I10 - Essential (primary) hypertension Comprehensive Met. Panel Today E11.9 - Type 2 diabetes mellitus without complications, G62.9 - Polyneuropathy, unspecified, I10 - Essential (primary) hypertension Folate Today E11.9 - Type 2 diabetes mellitus without complications, G62.9 - Polyneuropathy, unspecified, I10 - Essential (primary) hypertension Hemoglobin A1c Today E11.9 - Type 2 diabetes mellitus without complications, G62.9 - Polyneuropathy, unspecified, I10 - Essential (primary) hypertension Vitamin B12 and Folate Today E11.9 - Type 2 diabetes mellitus without complications, G62.9 - Polyneuropathy, unspecified, I10 - Essential (primary) hypertension Magnesium Today R25.2 - Cramp and spasm Coding Level of Care Code New Pt Level 4 (17372) Diagnoses Peripheral neuropathic pain M79.2 Muscle cramps R25.2
[2024-06-18 08:06] VITALS: BP 124/72; PULSE 63; O2SAT 98; BMI 24.1
== END 2024-06-18 09:02 | disposition home or self-care (01) ==
PROVIDERS: PCP Internal Medicine; Visit Provider Nurse Practitioner Family
DX: M79.2 Neuralgia and neuritis, unspecified (principal); R25.2 Cramp and spasm
CPT/HCPCS: 99204

== ENCOUNTER → 2024-06-18 07:59 | Outpatient (BNVA) | payer MEDICARE, OTHER, SELFPAY | PROVIDERS: PCP Internal Medicine; Visit Provider Nurse Practitioner Family | DX: M79.2 Neuralgia and neuritis, unspecified (principal); R25.2 Cramp and spasm | CPT/HCPCS: 99202 ==

== ENCOUNTER 2025-01-13 11:40 | Emergency (ER) | payer MEDICARE, SELFPAY ==
[2025-01-13 11:59] VITALS: BP 135/58; PULSE 67; RESP 18; TEMP 36.6; O2SAT 100; BMI 23.8
--- NOTE | 2025-01-13 12:02 | ED.RECABL ---
HPI - Recheck/Abnormal Lab/Rx General Chief Complaint: Recheck/Abnormal Lab/Rx Stated Complaint: Low Sodium Time Seen by Provider: 01/13/25 16:37 Source: patient Mode of arrival: ambulatory Limitations: no limitations History of Present Illness ED Provider: Dr. Galindo Marie HPI narrative: 74-year-old female with a history of anemia, neuropathy, diabetes, coronary artery disease, high cholesterol, hypertension, GERD, atrial fibrillation, hypomagnesemiaWho presents emergency department for evaluation of low sodium of 127 noted on routine blood work by PCP. and reviewing the patient's labs, patient was had low sodiums in the past with a sodium of 126 on 04/19/2021 and 128 on 2017. Patient's sodium was repeated here in the emergency department and it was 126. Patient was magnesium was also low at 1.3. She was had low magnesium in the past as well. The patient was asymptomatic. She states she does drink 4-5 16 oz bottles of water per day. Related Data Home Medications ?Medication ?Instructions ?Recorded ?Confirmed aspirin 81 mg capsule 81 mg PO DAILY 01/25/22 06/18/24 atorvastatin 80 mg tablet 1 tab PO DAILY 01/25/22 06/18/24 calcium 600 mg (as 1 tab PO DAILY 01/25/22 06/18/24 carbonate)-vitamin D3 10 mcg (400 unit) tablet (Calcium 600 + D(3)) carvedilol 12.5 mg tablet 1 tab PO BID 01/25/22 06/18/24 fluticasone propionate 50 1 spray intranasal BID 01/25/22 06/18/24 mcg/actuation nasal spray,suspension losartan 50 mg tablet 1 tab PO DAILY 01/25/22 06/18/24 metformin 1,000 mg tablet 1 tab PO BID 01/25/22 06/18/24 amlodipine 5 mg tablet 5 mg PO DAILY 06/18/24 06/18/24 gabapentin 300 mg capsule 300 mg PO TID 06/18/24 06/18/24 Allergies Allergy/AdvReac Type Severity Reaction Status Date / Time lisinopril AdvReac Cough Verified 01/13/25 12:01 Review of Systems Review of Systems: Yes all other systems are reviewed and are negative [facility] Past Medical History [facility] Narrative: Social history: She denies tobacco use. She drinks alcohol once a week -2 light beers and 1-2 glasses of wine. She denies drug use. Medical History (Updated 01/13/25 @ 20:40 by Galindo Marie MD) Anemia Neuropathy Diabetes Osteoarthritis Allergic rhinitis CAD (coronary artery disease) Glaucoma DM II (diabetes mellitus, type II), controlled High cholesterol High blood pressure GERD (gastroesophageal reflux disease) Surgical History History of eye surgery History of heart artery stent History of tubal ligation History of tonsillectomy Social History Social History Are you a primary nurse behavioral health care to a significant other at home: No Do you presently have visiting nurse or other home services: No Patient Tobacco Use Status: Former Tobacco user Advance Directives: No Advance Directives Information Provided: Yes Do you have a plan to hurt others: No Plan Physical Exam Vital Signs: Vital Signs: Last Vital Signs Temp 98.6 F 01/13/25 20:12 Pulse 72 01/13/25 20:12 Resp 16 01/13/25 20:12 BP 143/68 H 01/13/25 20:12 Pulse Ox 100 01/13/25 20:12 O2 Del Method Room Air 01/13/25 20:12 BMI result Body Mass Index 23.8 Vital signs revealed an elevated blood pressure of 135/58 otherwise unremarkable Exam: General: Awake, alert in no distress Head: Normocephalic, atraumatic EENT: PERRL, Lids normal, sclera normal, conjunctiva normal, nose normal , ears normal, throat without erythema or exudates Neck: Supple, no adenopathy Lung: breath sounds symmetric, no wheezing, rales or rhonchi Chest: symmetric movement, nontender Heart: regular rate and rhythm, normal S1, S2 no murmurs or rubs Abdomen: soft, non-tender, nondistended, normal bowel sounds Back: no vertebral tenderness, no CVAT Extremities: no deformities, moves all extremities symmetrically Neuro: Awake, alert, oriented, normal speech, cranial nerves intact, moves all extremities symmetrically Psych: Pleasant, cooperative Course Course Course Narrative: This is an RME: Additional HPI, ROS, PE not included below will be deferred to primary provider. RME assessment and note performed by: Keyanna Sandra PA-C This is a 74-year-old female who presents emergency department as she was called by her primary care physician at [facility], after having routine blood work and her sodium was 127. She states that she was feeling well. No current complaints. She is well-appearing under no acute distress. Plan: Repeat labs. Further ER evaluation needed. Medications Administered Discontinued Medications Generic Name Dose Route Start Last Admin Trade Name Freq PRN Reason Stop Dose Admin Magnesium Oxide 800 mg 01/13/25 16:46 01/13/25 17:06 Magnesium Oxide 400 Mg Tablet PO 01/13/25 16:47 800 mg ONCE ONE Administration Medical Decision Making Medical Decision Making MDM Narrative: 74-year-old female with a history of anemia, neuropathy, diabetes, coronary artery disease, high cholesterol, hypertension, GERD, atrial fibrillation, hypomagnesemiaWho presents emergency department for evaluation of low sodium of 127 noted on routine blood work by PCP. patient was asymptomatic. The patient was had some normal sodiums in the past:128 on 07/30/2018 and 126 on 04/19/2021 . Patient was also had low magnesium in the past for as well. She was not taking diuretics. She was not been sick in any way recently. She does drink 4-5 16 oz bottles of water per day. Differential diagnosis: Includes but is not limited to SIADH, water intoxication, hyponatremia secondary to medications, electrolyte abnormalities, anemia Course: 17:06 hours My interpretation patient's laboratory evaluation is as follows: Normocytic anemia with an H&H of 11.4 and 32.6. Low platelet count a 144,000-chronic. Low sodium, chloride and bicarb of 126, 93 and 21. Normal BUN and creatinine 5 and 0.53. Magnesium was low 1.3. Patient was ordered to get magnesium oxide 800 mg orally. I ordered a serum osmolality, urine osmolality and urine sodium to sort out her hyponatremia. At this time, the patient will not get any fluids IV until I can determine the etiology of her hyponatremia. 20:30 The patient has serum osmolality was low 272, urine osmolality was low 118 in urine sodium was below 31. Given that all of the values are low, patient's presentation is consistent with water intoxication. I did discuss the patient's presentation and laboratory findings with our covering resource specialist, Dr. Newsome. He recommended that the patient stay on a fluid restriction and that he will follow the patient up in his office. I did discuss this with the patient and the patient was discharged home. She was advised to stay on a 1 L per day fluid restriction (32 oz or 4 cups of fluid per day). She was advised to contact Dr. Newsome office for follow-up appointment. Admission/Observation Consideration of admission/observation: Escalation of care including admission/observation considered (Yes) Consult Healthcare Provider Management of the patient was discussed with: Web Designer Developer (Nephrology: Dr. Newsome) Lab Data MDM Lab Attestation statement: I reviewed the patient's lab results. 01/13/25 12:52 01/13/25 12:52 Labs: Lab Results 01/13/25 01/13/25 Range/Units 12:52 17:18 WBC 4.8 (4.8-10.8) X10*3/uL RBC 3.39 L (4.20-5.50) X10*6/uL Hgb 11.4 L (12.0-16.0) g/dl Hct 32.6 L (37.0-47.0) % MCV 96.2 (80.0-98.0) fL MCH 33.6 H (27.0-33.0) pg MCHC 35.0 (31.0-35.0) g/dl RDW 13.0 (11.0-16.0) % Plt Count 144 L (160-400) X10*3/uL MPV 10.0 (9.4-12.3) fL Immature Gran % (Auto) 0.2 (0.0-0.4) % Neut % (Auto) 60.7 (45-73) % Lymph % (Auto) 24.5 (20-40) % Victoria % (Auto) 9.4 (2-11) % Eos % (Auto) 4.8 H (0-4) % Baso % (Auto) 0.4 (0-2) % Lymph # (Auto) 1.2 (1.2-4.9) X10*3/uL Victoria # (Auto) 0.5 (0.1-1.2) X10*3/uL Eos # (Auto) 0.2 (0.0-0.4) X10*3/uL Baso # (Auto) 0.0 (0.0-0.2) X10*3/uL Abs Immat Gran (auto) 0.01 (0.00-0.03) X10*3/uL Absolute Neuts (auto) 2.9 (2.0-8.3) x10*3/uL Absolute Nucleated RBC 0.000 (0.0-0.012) X10*3/uL Nucleated RBC % (auto) 0.0 (0.0-0.2) /100WBC Sodium 126 L (135-145) mmol/L Potassium 4.5 (3.3-5.1) mmol/L Chloride 93 L (96-108) mmol/L Carbon Dioxide 21 L (22-29) mmol/L Anion Gap 17 (12-20) BUN 5 L (9-16) mg/dL Creatinine 0.53 (0.5-1.4) mg/dL Estim Creat Clear Calc 72.5 Estimated GFR > 60 Random Glucose 73 (60-115) mg/dL Osmolality 272 L (281-305) mosm/kg Calcium 8.9 D (8.4-10.2) mg/dL Magnesium 1.3 L* (1.6-2.6) mg/dL Total Bilirubin 0.6 (0.0-1.0) mg/dL Direct Bilirubin 0.2 (0.0-0.5) mg/dL AST 24 (5-31) U/L ALT 20 (0-31) U/L Alkaline Phosphatase 39 (39-117) U/L Total Protein 6.9 (6.5-8.0) g/dL Albumin 4.4 (3.5-5.0) g/dL Urine Color Yellow Urine Appearance Clear Urine pH 7.0 (5.0-9.0) Ur Specific [place] <= 1.005 (1.005-1.025) Urine Protein Negative (Neg-Trace) mg/dL Urine Glucose (UA) Negative (Negative) mg/dL Urine Ketones Negative (Negative) mg/dL Urine Blood Negative (Negative) Urine Nitrite Negative (Negative) Ur Leukocyte Esterase Trace H (Negative) Urine RBC 0-2 (0-2) /HPF Urine WBC 0-5 (0-5) /HPF Ur Squamous Epith Cells 0-2 (0-2) /HPF Urine Bacteria None Seen (None Seen) Hyaline Casts 0-2 (0-2) /LPF Urine Osmolality 118 L (373-1093) mosm/kg Ur Random Sodium 31.0 mmol/L Independent Historian Clinical information obtained from an independent historian. History obtained from or confirmed by: Spouse Discharge Plan Discharge Clinical Impression: Acute hyponatremia, Water intoxication syndrome Patient Disposition: Home, Self-Care Instructions: Hyponatremia (ED) Additional Instructions: Your sodium (salt) in your blood was low at 126. A normal sodium (salt) level is 135to 145. Based on your blood work today (low serum osmolality, low urine osmolality and urine sodium less than 40) your drinking too much water and that is what is making your salt low. You need to restrict the total amount of fluid that you drink to less than 1 L which is less than 32 oz (4 cups) a day. You need to do this for at least 1 week. I did discuss your low sodium with our covering resource specialist, Dr. Newsome. Please call his office to make a follow-up appointment. Continue taking your other medications as prescribed by your providers Follow-up with your doctor in 2 days. Please return to the emergency department if your symptoms get worse or if you develop any symptoms that are concerning to you. Prescriptions: No Action losartan 50 mg tablet 1 tab PO DAILY atorvastatin 80 mg tablet 1 tab PO DAILY carvedilol 12.5 mg tablet 1 tab PO BID metformin 1,000 mg tablet 1 tab PO BID fluticasone propionate 50 mcg/actuation spray,suspension 1 spray intranasal BID calcium carbonate-vitamin D3 [Calcium 600 + D(3)] 600 mg-10 mcg (400 unit) Tablet 1 tab PO DAILY aspirin 81 mg Capsule 81 mg PO DAILY gabapentin 300 mg capsule 300 mg PO TID amlodipine 5 mg tablet 5 mg PO DAILY Referrals: Antoine Newsome MD [Physician] - 1 week (Hyponatremia secondary to water intoxication, needs follow-up) Print Language: Japanese
[2025-01-13 13:00] LABS: MANUAL DIFF FLAG NO
[2025-01-13 13:02] LABS: Basophils Percent Auto 0.4 % (0-2); Eosinophils Absolute Auto 0.2 X10*3/uL (0.0-0.4); Eosinophils Percent Auto 4.8 % (0-4); Hematocrit 32.6 % (37.0-47.0); Hemoglobin 11.4 g/dl (12.0-16.0); Imm Gran Abs Auto 0.01 X10*3/uL (0.00-0.03); Imm Gran Pct Auto 0.2 % (0.0-0.4); Lymphocytes Absolute Auto 1.2 X10*3/uL (1.2-4.9); Lymphocytes Percent Auto 24.5 % (20-40); Mean Corpuscular Hemoglobin 33.6 pg (27.0-33.0); Mean Corpuscular Volume 96.2 fL (80.0-98.0); Monocytes Absolute Auto 0.5 X10*3/uL (0.1-1.2); Monocytes Percent Auto 9.4 % (2-11); Neutrophils Absolute Auto 2.9 x10*3/uL (2.0-8.3); Neutrophils Percent Auto 60.7 % (45-73); Platelet Count 144 X10*3/uL (160-400); Red Blood Count 3.39 X10*6/uL (4.20-5.50); White Blood Count 4.8 X10*3/uL (4.8-10.8)
[2025-01-13 13:29] LABS: Alanine Aminotransferase 20 U/L (0-31); Albumin Level 4.4 g/dL (3.5-5.0); Alkaline Phosphatase 39 U/L (39-117); Anion Gap 17 (12-20); Aspartate Amino Transferase 24 U/L (5-31); Bilirubin Direct 0.2 mg/dL (0.0-0.5); Bilirubin Total 0.6 mg/dL (0.0-1.0); Blood Urea Nitrogen 5 mg/dL (9-16); Calcium 8.9 mg/dL (8.4-10.2); Carbon Dioxide 21 mmol/L (22-29); Chloride 93 mmol/L (96-108); Creatinine Clr Calc Pharmacy 72.5; Estimated Glomerular Filt Rate > 60; Glucose Random 73 mg/dL (60-115); Magnesium 1.3 mg/dL (1.6-2.6); Potassium 4.5 mmol/L (3.3-5.1); Sodium 126 mmol/L (135-145); Total Protein 6.9 g/dL (6.5-8.0)
[2025-01-13] MEDS: Magnesium Oxide 400 MG TABLET 800 MG PO (17:06)
[2025-01-13 17:31] LABS: Appearance Urine Clear; Color Urine Yellow; Glucose Urine UA Negative (Negative); Leukocyte Esterase Urine Trace (Negative); Nitrite Urine Negative (Negative); Specific Gravity - Urine <= 1.005 (1.005-1.025); UMIC TRIGGER UACC YES; Urine Blood Negative (Negative); Urine Ketones Negative (Negative); Urine Protein Negative (Neg-Trace)
[2025-01-13 17:35] LABS: Bacteria Urine None Seen (None Seen); Hyaline Casts Urine 0-2 /LPF (0-2); RBC Urine 0-2 /HPF (0-2); Squamous Epithelial Cell Urine 0-2 /HPF (0-2); WBC Urine 0-5 /HPF (0-5)
[2025-01-13 17:40] LABS: Osmolality, Serum 272 mosm/kg (281-305)
--- OUTSIDE RECORDS SUMMARY | 2025-01-13 18:12 | XMS_ITS | Clinical Summary ---
Author Organization [facility] ity Address [address] [place] [address] Care Team Providers Care Technical Training Instructor Name Role Phone Unavailable Primary Care Provider Unavailabl e Social History Tobacco Use Types Packs/Day Years Used Date Smoking Tobacco: Never Assessed Comments Unknown Sex and Gender Information Value Date Recorded Sex Assigned at Not on file Legal Sex Female 6:11 AM EST Gender Identity Not on file Sexual Orientation Not on file Plan of Treatment Health Maintenance Due Date Last Done Comments DTaP,Tdap,and Td Vaccines (1 - Tdap) 1968 Pneumococcal Vaccine: 50+ Years (1 of 1 - PCV) 1999 Zoster Vaccines (1 of 2) 1999 Colorectal Cancer Screening: Colonoscopy 09/16/2022 Depression Screening 09/16/2022 Falls Risk Assessment 09/16/2022 Hepatitis C Screening 09/16/2022 Osteoporosis Screening (Bone Density Screening) 09/16/2022 Social Influencers of Health Screening 09/16/2022 RSV Immunization Adult Patients (1 - 1-dose 75+ series) 2024 COVID-19 Vaccine ( - 2023- season) 2024 Influenza Vaccine (#1) 2024 Breast Cancer Screening Discontinued 07/21/20, 04/08/2023, 01/18/2022, Additional history exists HIB Vaccines Aged Out No longer eligi ble based on patient's age to complete this topic HPV Vaccines Aged Out No longer eligi ble based on patient's age to complete this topic Hepatitis A Vaccines Aged Out No long er eligible based on patient's age to complete this topic Hepatitis B Vaccines Aged Out No long er eligible based on patient's age to complete this topic IPV Vaccines Aged Out No longer eligi ble based on patient's age to complete this topic MMR Vaccines Aged Out No longer eligi ble based on patient's age to complete this topic Meningococcal ACWY Vaccine Aged Out N o longer eligible based on patient's age to complete this topic Meningococcal B Vacine Aged Out No lo nger eligible based on patient's age to complete this topic RSV Immunization Patients Under 20 months Aged Out No longer eligible based on patient's age to complete this topic Varicella Vaccines Aged Out No longer eligible based on patient's age to complete this topic Procedures Procedure Name Priority Date/Time Associated Diagnosis Comments [facility] SCREENING DIGITAL Routine 07/21/2024 4:48 PM EDT Encounter for screening mammogram for malignant neoplasm of breast from Last 3 Months or Most Recently Relevant to Health Maintenance Results * [facility] SCREENING DIGITAL (07/21/2024 4:48 PM EDT) Anatomical Region Laterality Modality Mammography 07/21/2024 7:35 AM EDT Narrative 07/21/2024 4:48 PM EDT [facility] Diagnostic Imaging Department [address] [place] [address] Patient: ??SALIMA NOLASCO ?/Age/Sex: 1950 - 74 - F Unit#: ??[id number] ? Location/Status: ??SPDIMAM/REG CLI ? Mnemonic/Ordering Site: ??[facility]SC/[facility] Ordering Physician: ??CARISA MCKEON MD Josie Screening Digital - 07/21/24805 Report Status:Signed EXAM: ??SCREENING MAMMOGRAPHY, BILATERAL HISTORY: ??SCREENING. ??Previous right breast biopsy. ??Previous report indicates excisional left breast biopsy COMPARISON: ??04/08/2023, 01/18/2022, 12/29/2020 TECHNIQUE: Synthesized CC and MLO projections of each breast. ??Tomosynthesis of each breast in the CC and MLO projections. ADDITIONAL IMAGING: None Computer-aided detection was employed. ??i CAD profound AI 3-D. TISSUE DENSITY: The breasts are extremely dense, which lowers the sensitivity of mammography. (BI-RADS category D) FINDINGS: RIGHT BREAST: No suspicious mass. No suspicious calcification. No new distortion. ?? No suspicious change in the region of 2 biopsy site markers The architecture in the outer right breast appears similar to multiple previous studies. LEFT BREAST: No suspicious mass. No suspicious calcification. No new areas distortion. Skin markers at the site of skin retraction in the 9 o'clock region consistent with previous excision. IMPRESSION: No definite mammographic evidence of malignancy Extremely heterogeneous dense tissue could obscure a significant abnormality. The patient is a candidate for bilateral screening breast ultrasound. A negative mammogram in the presence of a clinically suspicious palpable abnormality does not preclude the possibility of malignancy or alter the indications for biopsy. ASSESSMENT: BI-RADS 2: BENIGN RECOMMENDATION(S): 1: Routine screening mammogram BILATERAL in 1 year. 2: Consider bilateral screening breast ultrasound Dictating Physician: ??Anne HOOPER BRET MD Electronically Signed by: ??Anne HOOPER BRET MD Dic Date/Time: ??07/21/24 1353 Sign date/Time: ??07/21/24 1642 Procedure Note Pilo Hooper MD - 08/11/2024 [facility] Diagnostic Imaging Department [address] [place] [address] Patient: SALIMA NOLASCO /Age/Sex: 1950 - 74 - F Unit#: [id number] Location/Status: SPDIMAM/REG CLI Mnemonic/Ordering Site: [facility] Ordering Physician: CARISA MCKEON MD Josie Screening Digital - 07/21/24805 Report Status:Signed EXAM: SCREENING MAMMOGRAPHY, BILATERAL HISTORY: SCREENING. Previous right breast biopsy. Previous reportindicates excisional left breast biopsy COMPARISON: 04/08/2023, 01/18/2022, 12/29/2020 TECHNIQUE: Synthesized CC and MLO projections of each breast.Tomosynthesis of each breast in the CC and MLO projections. ADDITIONAL IMAGING: None Computer-aided detection was employed. i CAD profound AI 3-D. TISSUE DENSITY: The breasts are extremely dense, which lowers thesensitivity of mammography. (BI-RADS category D) FINDINGS: RIGHT BREAST: No suspicious mass. No suspicious calcification. No new distortion. No suspicious change in the region of 2 biopsy site markers The architecture in the outer right breast appears similar to multipleprevious studies. LEFT BREAST: No suspicious mass. No suspicious calcification. No new areasdistortion. Skin markers at the site of skin retraction in the 9 o'clock regionconsistent with previous excision. IMPRESSION: No definite mammographic evidence of malignancy Extremely heterogeneous dense tissue could obscure a significantabnormality. The patient is a candidate for bilateral screening breast ultrasound. A negative mammogram in the presence of a clinically suspicious palpable abnormality does not preclude the possibility of malignancy or alter the indications for biopsy. ASSESSMENT: BI-RADS 2: BENIGN RECOMMENDATION(S): 1: Routine screening mammogram BILATERAL in 1 year. 2: Consider bilateral screening breast ultrasound Dictating Physician: Anne HOOPER BRET MD Electronically Signed by: Anne HOOPER BRET MD Dic Date/Time: 07/21/24 1353 Sign date/Time: 07/21/24 3018 us Carisa Mckeon MD IMG BI PROCEDURES Final Result from Last 3 Months or Most Recently Relevant to Health Maintenance
[2025-01-13 18:33] VITALS: BP 145/66; PULSE 72; RESP 14; TEMP 36.1; O2SAT 100
[2025-01-13 19:27] LABS: Osmolality Urine 118 mosm/kg (373-1093)
[2025-01-13 20:12] VITALS: BP 143/68; PULSE 72; RESP 16; TEMP 37; O2SAT 100
[2025-01-13 20:47] VITALS: BP 143/68; PULSE 72; RESP 16; TEMP 37; O2SAT 100
== END 2025-01-13 20:48 | disposition home or self-care (01) ==
PROVIDERS: Physician Assistant Medical; Emergency Provider Emergency Medicine Emergency Medical Services; PCP Internal Medicine
DX: R79.89 Other specified abnormal findings of blood chemistry (principal); E87.1 Hypo-osmolality and hyponatremia; E87.79 Other fluid overload; Z79.899 Other long term (current) drug therapy
CPT/HCPCS: 36415; 80048; 80076; 81001; 83735; 83930; 83935; 84300; 85025; 99283

== ENCOUNTER 2025-01-14 07:28 | Outpatient (REF) | payer MEDICARE, SELFPAY ==
--- OUTSIDE RECORDS SUMMARY | 2025-01-14 07:31 | XMS_ITS | Clinical Summary ---
Author Organization [facility] ity Address [address] [place] [address] Care Team Providers Care Chief Mate Name Role Phone Unavailable Primary Care Provider [...] Procedure Name Priority Date/Time Associated Diagnosis Comments [facility] SCREENING DIGITAL Routine 07/21/2024 4:48 PM EDT Encounter for screening mammogram for malignant neoplasm of breast from Last 3 Months or Most Recently Relevant to Health Maintenance Results * [facility] SCREENING DIGITAL (07/21/2024 4:48 PM EDT) Anatomical Region Laterality Modality Mammography 07/21/2024 7:35 AM EDT Narrative 07/21/2024 4:48 PM EDT [facility] Diagnostic Imaging Department [address] [place] [address] Patient: ??SALIMA NOLACSO ?/Age/Sex: 1950 - 74 - F Unit#: ??[id number] ? Location/Status: ??SPDIMAM/REG CLI ? Mnemonic/Ordering Site: [...] Dic Date/Time: ??07/21/24 1353 Sign date/Time: ??07/21/24 164 Procedure Note Pilo Hooper MD - 08/11/2024 [facility] Diagnostic Imaging Department [address] [place] [address] Patient: SALIMA NOLASCO /Age/Sex: 1950 - 74 - F Unit#: [id number] Location/Status: SPDIMAM/REG CLI Mnemonic/Ordering Site: [facility] Ordering Physician: CARISA MCKEON MD Josie [...] Dic Date/Time: 07/21/24 1353 Sign date/Time: 07/21/24 2458 us Carisa Mckeon MD IMG BI PROCEDURES Final Result from Last 3 Months or Most Recently Relevant to Health Maintenance
== END 2025-01-14 07:29 | disposition home or self-care (01) ==
LOC: HO.MRI 07:28
PROVIDERS: PCP Internal Medicine; Visit Provider Internal Medicine
DX: Z13.89 Encounter for screening for other disorder (principal)

== ENCOUNTER 2025-01-29 09:05 | Outpatient (AMB) | payer MEDICARE, SELFPAY ==
--- OUTSIDE RECORDS SUMMARY | 2025-01-29 09:32 | XMS_ITS | Continuity of Care Document ---
Author Organization [facility] Address [address] [place] [address] [address] [place] [address] Phone Care Team Providers Care Dispensing Lead Name Role Phone Ciera CHAPA, Violeta Unavailable [...] Providers Copied on Encounter [facility], [address] [place] [address] Dr [address], [place], [id number], [place] tel:[phone] [facility] No Information 4 Ciera Mcdaniel. [address] [facility], [address], [place], [place], [id number] , [place]. tel:[phone] Office/Outpt E&M Established 15 Mins- [place] & [place] [facility], [address] [place] [address] [facility] [address], [id number], [place] tel:[phone] [facility] - [facility] Venous insufficiency (chronic) (peripheral)Ty pe 2 diabetes mellitus without complicationsE ssential (primary) hypertension Jun- 4 Krunal CHAPA RVT, RPVI Robert. [address] [place] [address], Frida [place], [id number] , [place]. [phone] Referring Provider: Carisa Courtney MD, [address] [place] [address] , [place], [address]. tel:[phone] [facility], [address] [place] [address] [facility] [address], [id number], [place] tel:[phone] [facility] - [facility] Chronic venous hypertension (idiopathic) with other complications of bilateral lower extremity Jun- 4 Krunal CHAPA RVT, JT Howell. [address] [place] [address], Frida [place], [id number] , [place]. tel:[phone] Referring Provider: Dante Hector MD, RVT, JT, [address] [place] [address], [place], [address] . tel:[phone] [facility], [address] [place] [address] [facility] [address] [place], [id number], [place] tel:[phone] [facility] - [facility] Encounter for follow-up examination after completed treatment for conditions other than malignant nePain in left lower leg 4 Krunal CHAPA RVT, RPVI Robert. [address] [place] [address], [place] [address], Fr[place], [id number] , [place]. tel:[phone] Referring Provider: Dante Hector MD, RVT, JT, [address] [place] [address], [place], [address] . tel:[phone] [facility] [place] [facility], [address] [place] [address] Dr [address] [place], [id number], tel:[phone] [facility]R - [place] [facility] Chronic venous hypertension (idiopathic) with inflammation of left lower extremity 4 Krunal CHAPA RVT, RPVI Robert. [address] [place] [address], [facility] [place], [id number] , [place]. [phone] [facility], [address] [place] [address] Dr [address] Neo Gaytan [place], [id number], [place] tel:[phone] [facility] - [place] [facility] Encounter for follow-up examination after completed treatment for conditions other than malignant nePain in right leg 4 Krunal CHAPA RVT, RPVI Robert. [address] [place] [address], [facility] [place], [id number] , [place]. [phone] Referring Provider: Dante Hector MD, RVT, RPVI, [address] [place] [address], [facility] [place], [address] . tel:[phone] [facility], [address] [place] [address] Dr [address] Neo Gaytan [place], [id number], [place] tel:[phone] [facility] - [place] [facility] [place] Varicose veins of right lower extremity with other complications 4 Krunal CHAPA RVT, RPVI Robert. [address] [place] [address], [facility] [place], [id number] , [place]. [phone] [facility], [address] [place] [address] [address] [place], [id number], [place] tel:[phone] [facility] - [place] [facility] Chronic venous hypertension (idiopathic) with inflammation of right lower extremity 4 Krunal CHAPA RVT, RPVI Robert. [address] [place] [address], [facility] [place], [id number] , [place]. tel:[phone] Offic/outpt E&m Estab 5 Min Trial- Telemedicine CT & [place] [facility], [address] [place] [address] Dr [address] 1000Sumadhavi 1000Neo [place], [id number], [place] tel:[phone] [facility] - [facility] Chronic venous hypertension (idiopathic) with other complications of bilateral lower extremityRestl ess legs syndromeLymphe sindy, not elsewhere classifiedType 2 diabetes mellitus without complicationsE ssential (primary) hypertensionPr uritus, unspecifiedHer editary lymphedema 4 Krunal CHAPA RVT, JT Howell. [address] [place] [address], Fr[place], [id number] , [place]. tel:[phone] [facility], [address] [place] [address] Dr [address]o conner [place], [id number], [place] tel:[phone] [facility] - [facility] No Information 4 Krunal CHAPA RVT, JT Howell. [facility] [place] [address], Fr[place], [id number] , [place]. tel:[phone] Office/Oupt E&M New Pt 45 Mins- CT & [place] [facility], [address] [place] [address] Dr [address]o conner [place], [id number], [place] tel:[phone] [facility] - [facility] Chronic venous hypertension (idiopathic) with other complications of bilateral lower extremityType 2 diabetes mellitus without complicationsR estless legs syndromeEssent ial (primary) hypertensionLo calized edema 4 Krunal CHAPA RVT, RPVI Robert. [facility] [place] [address], [place], [id number] , [place]. tel:[phone] [facility], [address] [place] [address] Dr [address]SuNeo conner [place], [id number], [place] tel:[phone] [facility] - [facility] Chronic venous hypertension (idiopathic) with other complications of bilateral lower extremity 4 Krunal MDMUNA RPVI Robert. [address] [facility], [address], [place], [id number] , . tel:[phone] Referring Provider: Dante Hector MD, MUNA, JT, [address] [facility] [address], [place], [address] . tel:[phone] Family History Family Member Type Diagnosis Age At Onset No Information Payers Payer name Insurance type Covered constitution party ID Authoriza tion(s) Medicare MIRELLA WATTS [id number] Social History Type Description Quantity Date Captured [...]
--- OUTSIDE RECORDS SUMMARY | 2025-01-29 09:32 | XMS_ITS | Clinical Summary ---
Author Organization [facility] ity Address [address] [place] [address] Care Team Providers Care Lens And Frames Prescription Clerk Name Role Phone Unavailable Primary Care Provider [...] 75+ series) 2024 COVID-19 Vaccine ( - season) 2024 Influenza Vaccine (Season Ended) 2025 Breast Cancer Screening Discontinued 07/21/20, 04/08/2023, 01/18/2022, [...] age to complete this topic Meningococcal B Vaccine Aged Out No l onger eligible based on patient's age to complete this topic RSV Immunization Patients Under 20 months Aged Out No longer eligible based on patient's age to complete this topic Varicella Vaccines Aged Out No longer eligible based on patient's age to complete this topic Procedures Procedure Name Priority Date/Time Associated Diagnosis Comments [facility] SCREENING DIGITAL Routine 07/21/2024 4:48 PM EDT Encounter for screening mammogram for malignant neoplasm of breast from Last 3 Months or Most Recently Relevant to Health Maintenance Results * [facility] SCREENING DIGITAL (07/21/2024 4:48 PM EDT) Anatomical Region Laterality Modality Mammography 07/21/2024 7:35 AM EDT Narrative 07/21/2024 4:48 PM EDT [facility] Diagnostic Imaging Department [address] [place] [address] Patient: ??SALIMA NOLASCO ?/Age/Sex: 1950 - 74 - F Unit#: ??[id number] ? Location/Status: ??SPDIMAM/REG CLI ? Mnemonic/Ordering Site: [...] Dic Date/Time: ??07/21/24 1353 Sign date/Time: ??07/21/24 1646 Procedure Note Pilo Hooper MD - 08/11/2024 [facility] Diagnostic Imaging Department [address] [place] [address] Patient: SALIMA NOLASCO /Age/Sex: 1950 - 74 - F Unit#: [id number] Location/Status: SPDIMAM/REG CLI Mnemonic/Ordering Site: [facility] Ordering Physician: CARISA MCKEON MD Josie [...] Dic Date/Time: 07/21/24 1353 Sign date/Time: 07/21/24 1648 us Carisa Mckeon MD IMG BI PROCEDURES Final Result from Last 3 Months or Most Recently Relevant to Health Maintenance
--- NOTE | 2025-01-29 09:35 | HO.NEPHOV_ITS ---
Vital Signs 01/29/25 09:38 Height 5 ft 2 in Weight 131 lb BMI 24.0 BP 94/60 Blood Pressure Location Lt brachial Position Sitting Pulse 71 Pulse Source Pulse Oximeter Pulse Oximetry (%) 98 Oxygen Delivery Method Room Air Intake Visit Reasons: Dx- Hyponatremia-Conf Airconditioning Drafting Officer Required: No Accompanied by: Self / Same As Patient Allergies lisinopril Adverse Reaction (Verified 01/29/25 09:37) Cough HPI Comments Details: I had the privilege of seeing Salima Floyd in consultation for hyponatremia. She has H/O low sodium in the past. She denies nausea, vomiting, diarrhea, orthostatic symptoms, palpitations, edema, liver disease, proteinuria, advanced CKD. She is a diabetic and is not has any H/O depression or being on anti depressants. She has no H/O hyperkalemia or uncontrolled thyroid disorders. She denies drinking beer or excess free water. She has no H/O malignancy, weakness or mental status changes. She has no H/O HCTZ intake even though she has hypertension. She has H/O hypomagnesemia. She had no specific systemic complaints at the time of this office visit [facility] Medical History (Updated 01/29/25 @ 09:53 by Antoine Newsome MD) Anemia Neuropathy Diabetes Osteoarthritis Allergic rhinitis CAD (coronary artery disease) Glaucoma DM II (diabetes mellitus, type II), controlled High cholesterol High blood pressure GERD (gastroesophageal reflux disease) Surgical History History of eye surgery History of heart artery stent History of tubal ligation History of tonsillectomy Social History Are you a primary farm or ranch animal caretaker to a significant other at home: No Do you presently have visiting nurse or other home services: No Patient Tobacco Use Status: Former Tobacco user Review of Systems Const All systems reviewed & are unremarkable except as noted in HPI and below Physical Exam Vital Signs: Last Vital Signs Pulse 71 01/29/25 09:38 BP 94/60 01/29/25 09:38 Pulse Ox 98 01/29/25 09:38 Oxygen Delivery Method Room Air 01/29/25 09:38 BMI result Body Mass Index 24.0 Const General: comfortable and no acute distress Orientation/consciousness: patient oriented x3 HEENT Head: Yes normocephalic Mouth: Normal oral and palatal mucosa present Eyes EOM: EOMs intact bilaterally Neck Neck: Yes supple Resp Auscultation: clear to auscultation bilaterally Cardio Jugular venous distension: no JVD Rate: regular rate GI Palpation (GI): Soft to palpation Auscultation: normal bowel sounds General: Yes no CVA tenderness Back/Spine/Pelvis Back: no CVA tenderness Skin General skin exam: no rashes or lesions noted Neuro General: patient oriented x3 and moves all extremities Extrem General: Yes no pedal edema Results Reviewed Nephrology Results: Hgb 11.4 g/dl (12.0-16.0) L 01/13/25 WBC 4.8 X10*3/uL (4.8-10.8) 01/13/25 Plt Count 144 X10*3/uL (160-400) L 01/13/25 Sodium 126 mmol/L (135-145) L 01/13/25 Potassium 4.5 mmol/L (3.3-5.1) 01/13/25 Chloride 93 mmol/L (96-108) L 01/13/25 Carbon Dioxide 21 mmol/L (22-29) L 01/13/25 BUN 5 mg/dL (9-16) L 01/13/25 Creatinine 0.53 mg/dL (0.5-1.4) 01/13/25 Calcium 8.9 mg/dL (8.4-10.2) 01/13/25 Urine Protein Negative mg/dL (Neg-Trace) 01/13/25 Assessment & Plan Assessment & Plan (1) Hypomagnesemia: Code(s): E83.42 - Hypomagnesemia Category: Medical (2) High blood pressure: Code(s): I10 - Essential (primary) hypertension Category: Medical Qualifiers: Hypertension type: primary hypertension Qualified Code(s): I10 - Essential (primary) hypertension (3) Hyponatremia: Code(s): E87.1 - Hypo-osmolality and hyponatremia Category: Medical Plan Salima likely has excessive ADH. She is euvolemic. She has H/O fluctuating low sodium for sometime. She was asked to restrict PO free water intake. There is no indication for sodium chloride tablets or PO Urea. I have sent investigations for further work up. She is hypertensive and is on multiple medications which is keeping her BP at goal at home.She has H/O hypomagnesemia and I ordered repla cement. I shall work up in more detail if her low magnesium levels persists. Answered all questions and follow up was given Orders: Orders TSH reflex Free T4 3 Weeks E87.1 - Hypo-osmolality and hyponatremia, E83.42 - Hypomagnesemia Sodium Urine Random 3 Weeks E87.1 - Hypo-osmolality and hyponatremia, E83.42 - Hypomagnesemia Electrolytes 3 Weeks E87.1 - Hypo-osmolality and hyponatremia, E83.42 - Hypomagnesemia Cortisol Random 3 Weeks E87.1 - Hypo-osmolality and hyponatremia, E83.42 - Hypomagnesemia Osmolality Urine 3 Weeks E87.1 - Hypo-osmolality and hyponatremia, E83.42 - Hypomagnesemia Magnesium 3 Weeks E87.1 - Hypo-osmolality and hyponatremia, E83.42 - Hypomagnesemia Osmolality, Serum 3 Weeks E87.1 - Hypo-osmolality and hyponatremia, E83.42 - Hypomagnesemia Medications: New magnesium 250 mg PO BID 60 tabs 10RF 30 days Coding Level of Care Code New Pt Level 4 (08590) Diagnoses Hypomagnesemia E83.42 Primary hypertension I10 Hypertension type: primary hypertension Hyponatremia E87.1
[2025-01-29 09:38] VITALS: BP 94/60; PULSE 71; O2SAT 98; BMI 24.0
== END 2025-01-29 09:59 | disposition home or self-care (01) ==
LOC: HO.HKA 09:05
PROVIDERS: PCP Internal Medicine; Visit Provider Internal Medicine Nephrology
DX: E83.42 Hypomagnesemia (principal); I10 Essential (primary) hypertension; E87.1 Hypo-osmolality and hyponatremia
CPT/HCPCS: 99204

== ENCOUNTER → 2025-01-29 09:05 | Outpatient (BNVA) | payer MEDICARE, SELFPAY | PROVIDERS: PCP Internal Medicine; Visit Provider Internal Medicine Nephrology | DX: E83.42 Hypomagnesemia (principal); E87.1 Hypo-osmolality and hyponatremia; I10 Essential (primary) hypertension | CPT/HCPCS: 99202 ==

== ENCOUNTER 2025-03-03 07:41 | Outpatient (REF) | payer MEDICARE, SELFPAY ==
--- OUTSIDE RECORDS SUMMARY | 2025-03-03 08:00 | XMS_ITS | Clinical Summary ---
Author Organization [facility] ity Address [address] [place] [address] Care Team Providers Care Casting And Locker Room Servicer Name Role Phone Unavailable Primary Care Provider [...] Procedure Name Priority Date/Time Associated Diagnosis Comments [facility] SCREENING DIGITAL Routine 07/21/2024 4:48 PM EDT Encounter for screening mammogram for malignant neoplasm of breast from Last 3 Months or Most Recently Relevant to Health Maintenance Results * [facility] SCREENING DIGITAL (07/21/2024 4:48 PM EDT) Anatomical Region Laterality Modality Mammography 07/21/2024 7:35 AM EDT Narrative 07/21/2024 4:48 PM EDT [facility] Diagnostic Imaging Department [address] [place] [address] Patient: ??SALIMA NOLASCO ?/Age/Sex: 1950 - 74 - F Unit#: ??[id number] ? Location/Status: ??SPDIMAM/REG CLI ? Mnemonic/Ordering Site: [...] Dic Date/Time: ??07/21/24 1353 Sign date/Time: ??07/21/24 1644 Procedure Note Pilo Hooper MD - 08/11/2024 [facility] Diagnostic Imaging Department [address] [place] [address] Patient: SALIMA NOLASCO /Age/Sex: 1950 - 74 - F Unit#: [id number] Location/Status: SPDIMAM/REG CLI Mnemonic/Ordering Site: [facility] Ordering Physician: CARISA MCKEON MD Josie [...]
[2025-03-03 11:22] LABS: Osmolality Urine 198 mosm/kg (373-1093)
[2025-03-03 11:28] LABS: Osmolality, Serum 277 mosm/kg (281-305)
[2025-03-03 11:44] LABS: Anion Gap 14 (12-20); Carbon Dioxide 27 mmol/L (22-29); Chloride 97 mmol/L (96-108); Magnesium 1.7 mg/dL (1.6-2.6); Potassium 4.6 mmol/L (3.3-5.1); Sodium 133 mmol/L (135-145)
[2025-03-03 11:51] LABS: Cortisol Random 13.7 ug/dL
[2025-03-03 11:55] LABS: TSH reflex Free T4 2.18 uIU/mL (0.32-4.0)
== END 2025-03-03 07:42 | disposition home or self-care (01) ==
LOC: HO.10HDL 07:41
PROVIDERS: Visit Provider Internal Medicine Nephrology
DX: E83.42 Hypomagnesemia (principal); E87.1 Hypo-osmolality and hyponatremia
CPT/HCPCS: 36415; 80051; 82533; 83735; 83930; 83935; 84300; 84443

== ENCOUNTER 2025-03-10 09:16 | Outpatient (AMB) | payer MEDICARE, SELFPAY ==
[2025-03-10 09:44] VITALS: BP 102/52; PULSE 60; O2SAT 97; BMI 23.6
--- NOTE | 2025-03-10 09:44 | HO.NEPHOV_ITS ---
Vital Signs 03/10/25 09:44 Height 5 ft 2 in Weight 129 lb BMI 23.6 BP 102/52 L Blood Pressure Location Rt brachial Position Sitting Pulse 60 Pulse Source Pulse Oximeter Pulse Oximetry (%) 97 Oxygen Delivery Method Room Air Intake Visit Reasons: 1 MO FU- Conf Compressor Service Technician Required: No Accompanied by: Self / Same As Patient Allergies lisinopril Adverse Reaction (Verified 03/10/25 09:46) Cough HPI Comments Details: I had the privilege of seeing Salima Floyd in follow up for hyponatremia. She has H/O low sodium in the past. She denies nausea, vomiting, diarrhea, orthostatic symptoms, palpitations, edema, liver disease, proteinuria, advanced CKD. She is a diabetic and is not has any H/O depression or being on anti depressants. She has no H/O hyperkalemia or uncontrolled thyroid disorders. She denies drinking beer or excess free water. She has no H/O malignancy, weakness or mental status changes. She has no H/O HCTZ intake even though she has hypertension. She has H/O hypomagnesemia. She had no specific systemic complaints at the time of this office visit [facility] Medical History (Updated 01/29/25 @ 09:53 by Antoine Newsome MD) Anemia Neuropathy Diabetes Osteoarthritis Allergic rhinitis CAD (coronary artery disease) Glaucoma DM II (diabetes mellitus, type II), controlled High cholesterol High blood pressure GERD (gastroesophageal reflux disease) Surgical History History of eye surgery History of heart artery stent History of tubal ligation History of tonsillectomy Social History Are you a primary care transition mgr to a significant other at home: No Do you presently have visiting nurse or other home services: No Patient Tobacco Use Status: Former Tobacco user Review of Systems Const All systems reviewed & are unremarkable except as noted in HPI and below Physical Exam Vital Signs: Last Vital Signs Pulse 60 03/10/25 09:44 BP 102/52 L 03/10/25 09:44 Pulse Ox 97 03/10/25 09:44 Oxygen Delivery Method Room Air 03/10/25 09:44 BMI result Body Mass Index 23.6 Const General: comfortable and no acute distress Orientation/consciousness: patient oriented x3 HEENT Head: Yes normocephalic Mouth: Normal oral and palatal mucosa present Eyes EOM: EOMs intact bilaterally Neck Neck: Yes supple Resp Auscultation: clear to auscultation bilaterally Cardio Jugular venous distension: no JVD Rate: regular rate GI Palpation (GI): Soft to palpation Auscultation: normal bowel sounds General: Yes no CVA tenderness Back/Spine/Pelvis Back: no CVA tenderness Skin General skin exam: no rashes or lesions noted Neuro General: patient oriented x3 and moves all extremities Extrem General: Yes no pedal edema Results Reviewed Nephrology Results: Hgb 11.4 g/dl (12.0-16.0) L 01/13/25 WBC 4.8 X10*3/uL (4.8-10.8) 01/13/25 Plt Count 144 X10*3/uL (160-400) L 01/13/25 Sodium 133 mmol/L (135-145) L 03/03/25 Potassium 4.6 mmol/L (3.3-5.1) 03/03/25 Chloride 97 mmol/L (96-108) 03/03/25 Carbon Dioxide 27 mmol/L (22-29) 03/03/25 BUN 5 mg/dL (9-16) L 01/13/25 Creatinine 0.53 mg/dL (0.5-1.4) 01/13/25 Calcium 8.9 mg/dL (8.4-10.2) 01/13/25 Urine Protein Negative mg/dL (Neg-Trace) 01/13/25 Assessment & Plan Assessment & Plan (1) Hyponatremia: Code(s): E87.1 - Hypo-osmolality and hyponatremia Category: Medical (2) High blood pressure: Code(s): I10 - Essential (primary) hypertension Category: Medical Qualifiers: Hypertension type: primary hypertension Qualified Code(s): I10 - Essential (primary) hypertension (3) Hypomagnesemia: Code(s): E83.42 - Hypomagnesemia Category: Medical Plan Salima likely has excessive ADH. She is euvolemic. She has H/O fluctuating low sodium for sometime. She was asked to restrict PO free water intake. There is no indication for sodium chloride tablets or PO Urea. She is hypertensive and is on multiple medications which is keeping her BP at goal at home.She has H/O hypomagnesemia and she is on replacement. I shall work up in more detail if her low magnesium levels persists. Answered all questions and follow up was given Orders: Orders Electrolytes 3 Months E87.1 - Hypo-osmolality and hyponatremia Blood Urea Nitrogen 3 Months E87.1 - Hypo-osmolality and hyponatremia Creatinine 3 Months E87.1 - Hypo-osmolality and hyponatremia Coding Level of Care Code Est Pt Level 4 (99247) Diagnoses Hyponatremia E87.1 Primary hypertension I10 Hypertension type: primary hypertension Hypomagnesemia E83.42
--- OUTSIDE RECORDS SUMMARY | 2025-03-10 09:54 | XMS_ITS | Continuity of Care Document ---
Author Organization [facility] Address [address] [place] [address] Dr [address] [place] [address] Phone Care Team Providers Care Long Wall Shear Operator Name Role Phone Ciera CHAPA, Violeta Unavailable [...] Providers Copied on Encounter [facility], [address] [place] [address] Dr Pearson [address], [place], [id number], [place] tel:[phone] [facility] No Information 4 Ciera Mcdaniel. [address] [facility] [address], [place], [place], [id number] , [place]. tel:[phone] Office/Outpt E&M Established 15 Mins- [place] & [place] [facility], [address] [place] [address] [facility] [address], [id number], [place] tel:[phone] [facility] - [facility] Venous insufficiency (chronic) (peripheral)Ty pe 2 diabetes mellitus without complicationsE ssential (primary) hypertension Jun- 4 Krunal CHAPA RVT, RPVI Robert. [address] [place] [address], [place], [id number] , [place]. [phone] Referring Provider: Carisa Courtney MD, [address] [place] [address] , [place], [address]. tel:[phone] [facility], [address] [place] [address] [facility] [address], [id number], [place] tel:[phone] [facility] - [facility] Chronic venous hypertension (idiopathic) with other complications of bilateral lower extremity Jun- 4 Krunal CHAPA RVT, JT Hwoell. [address] [place] [address], [place], [id number] , [place]. tel:[phone] Referring Provider: Dante Hector MD, RVT, JT, [address] [place] [address], [place], [address] . tel:[phone] [facility], [address] [place] [address] [facility] [address], [id number], [place] tel:[phone] [facility] - [facility] Encounter for follow-up examination after completed treatment for conditions other than malignant nePain in left lower leg 4 Krunal CHAPA RVT, RPVI Robert. [address] [place] [address], [place] [address], [place], [id number] , [place]. tel:[phone] Referring Provider: Dante Hector MD, RVT, JT, [address] [place] [address], [place], [address] . tel:[phone] [facility], [address] [place] [address] Dr Pearson [address] [place], [id number], tel:[phone] [facility] - [place] [facility] [place] Chronic venous hypertension (idiopathic) with inflammation of left lower extremity 4 Krunal CHAPA RVT, RPVI Robert. [address] [place] [address], [facility] [place], [id number] , [place]. [phone] [facility], [address] [place] [address] Dr Pearson [address] Neo [place], [id number], [place] tel:[phone] [facility] [place] [facility] [place] Encounter for follow-up examination after completed treatment for conditions other than malignant nePain in right leg 4 Krunal CHAPA RVT, RPVI Robert. [address] [place] [address], [facility] [place] [facility], [id number] , [place]. [phone] Referring Provider: Dante Hector MD, RVT, RPVI, [address] [place] [address], [facility] [place], [address] . tel:[phone] [facility], [address] [place] [address] Dr Pearson [address] Neo [place], [id number], [place] tel:[phone] [facility] - [place] [facility] [place] Varicose veins of right lower extremity with other complications 4 Krunal CHAPA RVT, RPVI Robert. [address] [place] [address], [facility] [place], [id number] , [place]. [phone] [facility], [address] [place] [address] Dr Pearson [address] Neo [place], [id number], [place] tel:[phone] [facility] - [place] [facility] [place] Chronic venous hypertension (idiopathic) with inflammation of right lower extremity 4 Krunal CHAPA RVT, RPVI Robert. [address] [place] [address], [facility] [place], [id number] , [place]. tel:[phone] Offic/outpt E&m Estab 5 Min Trial- Telemedicine [place] & [place] [facility], [address] [place] [address] Dr Pearson 1000Sumadhavi 1000Neo [place], [id number], [place] tel:[phone] [facility] - [facility] Chronic venous hypertension (idiopathic) with other complications of bilateral lower extremityRestl ess legs syndromeLymphe sindy, not elsewhere classifiedType 2 diabetes mellitus without complicationsE ssential (primary) hypertensionPr uritus, unspecifiedHer editary lymphedema 4 Krunal CHAPA RVT, JT Howell. [address] [place] [address], [place], [id number] , [place]. tel:[phone] [facility]en Alejandre [facility], [address] [place] [address] Dr Pearson 1000Neo conner [place], [id number], [place] tel:[phone] [facility] - [facility] No Information 4 Krunal CHAPA RVT, JT Howell. [facility] [place] [address], [place], [id number] , [place]. tel:[phone] Office/Oupt E&M New Pt 45 Mins- CT & [place] [facility], [address] [place] [address] Dr Pearson [address]Neo [place], [id number], [place] tel:[phone] [facility] - [facility] Chronic venous hypertension (idiopathic) with other complications of bilateral lower extremityType 2 diabetes mellitus without complicationsR estless legs syndromeEssent ial (primary) hypertensionLo calized edema 4 Krunal CHAPA RVT, RPVI Robert. [facility] [place] [address], [place], [id number] , [place]. tel:[phone] Ruben Alej[facility]re [facility], [address] [place] [address] Dr Pearson 1000SuNeo conner [place], [id number], [place] tel:[phone] [facility] - [facility] Chronic venous hypertension (idiopathic) with other complications of bilateral lower extremity 4 Krunal MDMUNA RPVI Robert. [address] [facility], [address], [place], [id number] , . tel:[phone] Referring Provider: Dante Hector MD, MUNA, JT, [address] [facility] [address], [place], [address] . tel:[phone] Family History Family Member Type Diagnosis Age At Onset No Information Payers Payer name Insurance type Covered constitution party ID Authoriza tion(s) Medicare MIRELLA WATTS [id number] Social History Type Description Quantity Date Captured Comments Sex Female Smoking Status No Information Chief Complaint And Reason For Visit No Information Reason For Referral Reason For Referral No Information Plan Of Treatment Date Type Action Status Goal Diet education completed Goal Tobacco cessation counseling completed Goal Tobacco cessation counseling completed Goal Diet education completed Goal Tobacco cessation counseling completed Referral Ordered: Weight management: Referral to [...] Information Instructions Date Instruction Additional Infor mation Compression stocking usage as conservative measure Related to Venous insufficiency (chronic) (peripheral) Patient education booklet given Related to Venous insufficiency (chronic) (peripheral) Diet education Related to Body mass index (BMI) 25.0-25.9, adult Giving Encouragement to exercise Related to Body mass index (BMI) 25.0-25.9, adult Lifestyle education Related to B bhavin mass index (BMI) 25.0-25.9, adult Patient education booklet given Related to Chronic venous hypertension (idiopathic) with other complications of bilateral lower extremity Pre and post instruc tions reviewed and provided Related to Chronic venous hypertension (idiopathic) with other complications of bilateral lower extremity Diet education Related to Body mass index (BMI) 25.0-25.9, adult Giving Encouragement to exercise Related to Body mass index (BMI) 25.0-25.9, adult Lifestyle education Related to B bhavin mass index (BMI) 25.0-25.9, adult Patient education booklet given Related to Chronic venous hypertension (idiopathic) with other complications of bilateral lower extremity Pre and post instruc tions reviewed and provided Related to Chronic venous hypertension (idiopathic) with other complications of bilateral lower extremity Assessments Type Assessment Date No Information Patient Care Teams Name Effective Dates (start - stop) Status Members No Information
== END 2025-03-10 10:08 | disposition home or self-care (01) ==
LOC: HO.HKA 09:16
PROVIDERS: PCP Internal Medicine; Visit Provider Internal Medicine Nephrology
DX: E87.1 Hypo-osmolality and hyponatremia (principal); I10 Essential (primary) hypertension; E83.42 Hypomagnesemia
CPT/HCPCS: 99214

== ENCOUNTER → 2025-03-10 09:16 | Outpatient (BNVA) | payer MEDICARE, SELFPAY | PROVIDERS: PCP Internal Medicine; Visit Provider Internal Medicine Nephrology | DX: E87.1 Hypo-osmolality and hyponatremia (principal); E11.9 Type 2 diabetes mellitus without complications; I10 Essential (primary) hypertension; E83.42 Hypomagnesemia | CPT/HCPCS: 99212 ==

== ENCOUNTER 2025-05-31 08:08 | Outpatient (AMB) | payer MEDICARE, SELFPAY ==
--- NOTE | 2025-05-31 08:10 | MHC.OFFVIS ---
Vital Signs 05/31/25 08:11 Height 5 ft 2 in Weight 126 lb 6 oz BMI 23.1 BP 112/88 Blood Pressure Location Lt brachial Position Sitting Pulse 60 Pulse Source Pulse Oximeter Pulse Oximetry (%) 97 Oxygen Delivery Method Room Air Intake Visit Reasons: Follow Up Intake Note: Patient presents to the office today for a follow up for Neuropathy. Allergies lisinopril Adverse Reaction (Verified 05/31/25 08:11) Cough HPI Comments Details: 75-year-old female presents for follow-up of likely small fiber neuropathy. She states that she had a hospitalization earlier this year for hyponatremia, and is now following with [facility]. She did not have labs requested at last visit yet. She states her BLE muscle cramps have improved since starting magnesium. She reports BLE distally ankle foot swelling if she stands for too long, she has compression stockings. She asked that I assess her peripheral coloring, as she is very worried about developing gangrene. She denies numbness, skin ulcers/lesions, weakness. 06/18/2024, initial HPI: 74-yr-old female presents for neurological evaluation of possible small fiber neuropathy. PMH: diabetes x's many yrs- well-controlled, HTN- well-controlled, a-fib, HLD, CAD, OA, allergic rhinitis, Rosacea, remote h/o hypomagnesia. Pt reports she has been having BLE bottom of foot spasms/discomfort x's ~2yrs. This has not been progressing. Has muscle spasms/cramps in sole of foot, but also ankle and calves- not every night, but at times. Often triggered by stretching. The discomfort is in the sole of the foot, it is difficult to describe, maybe like prickly discomfort but denies pins and needles or creepy crawling sensation. She also feels heat in the distal BLE. In the past she did have ankle swelling. She denies redness. She was started on Gabapentin, and she is not sure if this is helpful or not- but it does diminish the heat sensation. She is worried about long-term effects of Gabapnetin. Nov 2023, BLE EMG/NCS- normal. Recently saw vascular, Dr Dante Hector, and had BLE venous intervention. Denies - numbness, lightheadedness, weakness, skin color changes, skin ulcers/rashes. [facility] Medical History Anemia Neuropathy Diabetes Osteoarthritis Allergic rhinitis CAD (coronary artery disease) Glaucoma DM II (diabetes mellitus, type II), controlled High cholesterol High blood pressure GERD (gastroesophageal reflux disease) Surgical History History of eye surgery History of heart artery stent History of tubal ligation History of tonsillectomy Social History Are you a primary health care coach to a significant other at home: No Do you presently have visiting nurse or other home services: No Patient Tobacco Use Status: Former Tobacco user Physical Exam Vital Signs: Last Vital Signs Pulse 60 05/31/25 08:11 BP 112/88 05/31/25 08:11 Pulse Ox 97 05/31/25 08:11 Oxygen Delivery Method Room Air 05/31/25 08:11 BMI result Body Mass Index 23.1 Const General: cooperative and no acute distress Orientation/consciousness: patient oriented x3 HEENT Head: Yes normocephalic Resp Effort & Inspection: normal respiratory effort and able to speak in complete sentences Neuro Other: BLE/feet- warm to touch. CMS + w/o edema, discoloration. BLE light touch and position sense intact. General: patient oriented x3, moves all extremities and CN's II-XI intact bilaterally Gait exam (Neuro): Normal gait present Motor exam (neuro): 5/5 motor strength present throughout Psych Appearance: grossly normal Mental Status: mental status grossly normal Speech and movement: Normal speech and movement present Affect: normal affect Attitude: cooperative Thought process: Normal thought process present Thought content: Normal thought content present Insight: Good insight present (Psych) Assessment & Plan Assessment & Plan (1) Peripheral neuropathic pain: Comment: likely small fiber neuropathy- ? chronic diabetes, which can occur even in well-controlled diabetes. ? vascular effects. Code(s): M79.2 - Neuralgia and neuritis, unspecified Category: Medical (2) Muscle cramps: Code(s): R25.2 - Cramp and spasm Category: Medical (3) Anemia: Code(s): D64.9 - Anemia, unspecified Category: Medical Qualifiers: Anemia type: unspecified type Qualified Code(s): D64.9 - Anemia, unspecified Plan Previous BLE EMG/NCS- no evidence for large fiber neuropathy. Continue Gabapentin 300mg po tid, as it does appear that she is tolerating it well and having some benefit from use. Patient is again advised to have labs for common etiologies of likely small fiber neuropathy-she states she will do this on Saturday-when she is due to have her follow-up labs for nephrology. As patient is a diabetic, advise patient of importance of doing routine foot checks, and communicating any skin ulcers/lesions to her healthcare team in a timely manner to prevent complications such as gangrene. Also reviewed red flag signs on unilateral swelling/pain/redness/warmth, and again to seek timely medical attention. No, patient did not understand the need for hospitalization due to hyponatremia, briefly explained the possible complications of untreated hyponatremia and strategies to reduce risk for hyponatremia. Follow-up in the Nephrology as scheduled. Other specialists: Dr Hector [facility], [facility] [address], [place] [address], Phone:? Will follow-up upon review of above and patient to follow-up in clinic in 6 months or sooner prn. Orders: Orders Complete Blood Count Auto Diff Today D64.9 - Anemia, unspecified, E11.9 - Type 2 diabetes mellitus without complications, I10 - Essential (primary) hypertension, M79.2 - Neuralgia and neuritis, unspecified, R25.2 - Cramp and spasm Lyme IgG/IgM w/reflex to WB Today D64.9 - Anemia, unspecified, E11.9 - Type 2 diabetes mellitus without complications, I10 - Essential (primary) hypertension, M79.2 - Neuralgia and neuritis, unspecified, R25.2 - Cramp and spasm Homocysteine Today D64.9 - Anemia, unspecified, E11.9 - Type 2 diabetes mellitus without complications, I10 - Essential (primary) hypertension, M79.2 - Neuralgia and neuritis, unspecified, R25.2 - Cramp and spasm Vitamin B1 Today D64.9 - Anemia, unspecified, E11.9 - Type 2 diabetes mellitus without complications, E51.9 - Thiamine deficiency, unspecified, I10 - Essential (primary) hypertension, M79.2 - Neuralgia and neuritis, unspecified, R25.2 - Cramp and spasm Vitamin B6 Today D64.9 - Anemia, unspecified, E11.9 - Type 2 diabetes mellitus without complications, I10 - Essential (primary) hypertension, M79.2 - Neuralgia and neuritis, unspecified, R25.2 - Cramp and spasm MARTI Reflex Titer and Pattern Today D64.9 - Anemia, unspecified, E11.9 - Type 2 diabetes mellitus without complications, I10 - Essential (primary) hypertension, M79.2 - Neuralgia and neuritis, unspecified, R25.2 - Cramp and spasm Comprehensive [place]. Panel Fast Today D64.9 - Anemia, unspecified, E11.9 - Type 2 diabetes mellitus without complications, I10 - Essential (primary) hypertension, M79.2 - Neuralgia and neuritis, unspecified, R25.2 - Cramp and spasm Vitamin B12 and Folate Today D64.9 - Anemia, unspecified, E11.9 - Type 2 diabetes mellitus without complications, I10 - Essential (primary) hypertension, M79.2 - Neuralgia and neuritis, unspecified, R25.2 - Cramp and spasm Methylmalonic Acid Today D64.9 - Anemia, unspecified, E11.9 - Type 2 diabetes mellitus without complications, I10 - Essential (primary) hypertension, M79.2 - Neuralgia and neuritis, unspecified, R25.2 - Cramp and spasm Ferritin Today D64.9 - Anemia, unspecified, E11.9 - Type 2 diabetes mellitus without complications, I10 - Essential (primary) hypertension, M79.2 - Neuralgia and neuritis, unspecified, R25.2 - Cramp and spasm IRON PROFILE Today D64.9 - Anemia, unspecified, E11.9 - Type 2 diabetes mellitus without complications, I10 - Essential (primary) hypertension, M79.2 - Neuralgia and neuritis, unspecified, R25.2 - Cramp and spasm Magnesium Today D64.9 - Anemia, unspecified, E11.9 - Type 2 diabetes mellitus without complications, I10 - Essential (primary) hypertension, M79.2 - Neuralgia and neuritis, unspecified, R25.2 - Cramp and spasm C Reactive Protein Today D64.9 - Anemia, unspecified, E11.9 - Type 2 diabetes mellitus without complications, I10 - Essential (primary) hypertension, M79.2 - Neuralgia and neuritis, unspecified, R25.2 - Cramp and spasm Erythrocyte Sedimentation Rate Today D64.9 - Anemia, unspecified, E11.9 - Type 2 diabetes mellitus without complications, I10 - Essential (primary) hypertension, M79.2 - Neuralgia and neuritis, unspecified, R25.2 - Cramp and spasm Coding Level of Care Code Est Pt Level 4 (88677) Diagnoses Peripheral neuropathic pain M79.2 Muscle cramps R25.2 Anemia, unspecified type D64.9 Anemia type: unspecified type
[2025-05-31 08:11] VITALS: BP 112/88; PULSE 60; O2SAT 97; BMI 23.1
== END 2025-05-31 09:13 | disposition home or self-care (01) ==
LOC: HO.HSMS 08:09
PROVIDERS: PCP Internal Medicine; Visit Provider Nurse Practitioner Family
DX: M79.2 Neuralgia and neuritis, unspecified (principal); R25.2 Cramp and spasm; D64.9 Anemia, unspecified
CPT/HCPCS: 99214

== ENCOUNTER → 2025-05-31 08:08 | Outpatient (BNVA) | payer MEDICARE, OTHER, SELFPAY | PROVIDERS: PCP Internal Medicine; Visit Provider Nurse Practitioner Family | DX: M79.2 Neuralgia and neuritis, unspecified (principal); R25.2 Cramp and spasm; D64.9 Anemia, unspecified; E11.9 Type 2 diabetes mellitus without complications | CPT/HCPCS: 99212 ==

== ENCOUNTER 2025-06-01 07:29 | Outpatient (REF) | payer MEDICARE, OTHER, SELFPAY ==
--- OUTSIDE RECORDS SUMMARY | 2024-07-16 04:37 | XMS_ITS | Continuity of Care Document ---
Author Organization [facility] Address [address] [place] [address] Dr [address] [place] [address] Phone Care Team Providers Care Patient Registration Specialist Name Role Phone Ciera CHAPA, Violeta Unavailable [...] Providers Copied on Encounter [facility], [address] [place] [address] Dr Pearson [address], [place], [id number], [place] tel:[phone] [facility] No Information 4 Ciera Mcdaniel. [address] [facility], [address], [place], [place], [id number] , [place]. tel:[phone] Office/Outpt E&M Established 15 Mins- [place] & [place] [facility], [address] [place] [address] [facility] [address], [id number], [place] tel:[phone] CVR - [facility] Venous insufficiency (chronic) (peripheral)Ty pe 2 diabetes mellitus without complicationsE ssential (primary) hypertension Jun- 4 Krunal CHAPA RVT, RPVI Robert. [address] [place] [address], [place], [id number] , [place]. [phone] Referring Provider: Carisa Courtney MD, [address] [place] [address] , [place], [address]. tel:[phone] [facility], [address] [place] [address] [facility] [address] 1000Neo [place], [id number], [place] tel:[phone] CVR - [facility] Chronic venous hypertension (idiopathic) with other complications of bilateral lower extremity Jun- 4 Krunal CHAPA RVT, JT Howell. [address] [place] [address], [place], [id number] , [place]. tel:[phone] Referring Provider: Dante Hector MD, RVT, JT, [address] [place] [address], [place], [address] . tel:[phone] [facility], [address] [place] [address] [facility] [address]Neo [place], [id number], [place] tel:[phone] CVR - [facility] Encounter for follow-up examination after completed treatment for conditions other than malignant nePain in left lower leg 4 Krunal CHAPA RVT, RPVI Robert. [address] [place] [address], [place] [address], [place], [id number] , [place]. tel:[phone] Referring Provider: Dante Hector MD, RVT, JT, [address] [place] [address], [place], [address] . tel:[phone] [facility], [address] [place] [address] Dr Pearson [address]Suite Neo Gay[place], [id number], tel:[phone] CVR - [place] [facility] [place] Chronic venous hypertension (idiopathic) with inflammation of left lower extremity 4 Krunal CHAPA RVT, RPVI Robert. [address] [place] [address], [facility] [place], [place], [id number] , [place]. [phone] [facility], [address] [place] [address] Dr Pearson [address]Suite Neo Gaytan [place], [id number], [place] tel:[phone] CVR - [place] Encounter for follow-up examination after completed treatment for conditions other than malignant nePain in right leg 4 Krunal CHAPA RVT, RPVI Robert. [address] [place] [address], [facility] [place], [id number] , [place]. [phone] Referring Provider: Dante Hector MD, RVT, RPVI, [address] [place] [address], [facility] [place], [address] . tel:[phone] [facility], [address] [place] [address] Dr Pearson [address]Suite Neo Gaytan [place], [id number], [place] tel:[phone] CVR - [place] Varicose veins of right lower extremity with other complications 4 Krunal CHAPA RVT, RPVI Robert. [address] [place] [address], [facility], [id number] , [place]. [phone] [facility], [address] [place] [address] Dr Pearson [address]Suite Neo Gaytan [place], [id number], [place] tel:[phone] CVR - [place] Chronic venous hypertension (idiopathic) with inflammation of right lower extremity 4 Krunal CHAPA RVT, RPVI Robert. [address] [place] [address], [facility] [place] [place], [id number] , [place]. tel:[phone] Offic/outpt E&m Estab 5 Min Trial- Telemedicine CT & [place] [facility], [address] [place] [address] Dr Pearson 1000Sumadhavi 1000Neo [place], [id number], [place] tel:[phone] CVR - [facility] Chronic venous hypertension (idiopathic) with other complications of bilateral lower extremityRestl ess legs syndromeLymphe sindy, not elsewhere classifiedType 2 diabetes mellitus without complicationsE ssential (primary) hypertensionPr uritus, unspecifiedHer editary lymphedema 4 Krunal CHAPA RVT, JT Howell. [address] [place] [address], [place], [id number] , [place]. tel:[phone] [facility]re [facility], [address] [place] [address] Dr Pearson 1000Neo conner [place], [id number], [place] tel:[phone] CVR - [facility] No Information 4 Krunal CHAPA RVT, JT Howell. [facility] [place] [address], [place], [id number] , [place]. tel:[phone] Office/Oupt E&M New Pt 45 Mins- CT & [place] [facility], [address] [place] [address] Dr Pearson 1000Neo conner [place], [id number], [place] tel:[phone] CVR - [facility] Chronic venous hypertension (idiopathic) with other complications of bilateral lower extremityType 2 diabetes mellitus without complicationsR estless legs syndromeEssent ial (primary) hypertensionLo calized edema 4 Krunal CHAPA RVT, RPVI Robert. [facility] [place] [address], [place], [id number] , [place]. tel:[phone] [facility] Alejandre [facility], [address] [place] [address] Dr Pearson 1000SuNeo conner [place], [id number], [place] tel:[phone] CVR - [facility] Chronic venous hypertension (idiopathic) with other complications of bilateral lower extremity 4 Krunal MDMUNA RPVI Robert. [address] [facility], [address], [place], [id number] , . tel:[phone] Referring Provider: Dante Hector MD, MUNA, JT, [address] [facility] [address], [place], [address] . tel:[phone] Family History Family Member Type Diagnosis Age At Onset No Information Payers Payer name Insurance type Covered green party ID Authoriza tion(s) Medicare MIRELLA WATTS [id number] Social History Type Description Quantity Date Captured [...]
--- OUTSIDE RECORDS SUMMARY | 2025-06-01 07:31 | XMS_ITS | Patient Health Record ---
Author Organization [facility] Address [address] [place] [address] Care Team Providers Care Chemistry Professor Name Role Phone NONE, NONE Primary Care Provider Dante Quiroz [phone] Reason For Referral No Information Plan Of Treatment No Information
--- OUTSIDE RECORDS SUMMARY | 2025-06-01 07:31 | XMS_ITS | Clinical Summary ---
Author Organization [facility] ity Address [address] [place] [address] Care Team Providers Care Segment Block Layer Name Role Phone Unavailable Primary Care Provider [...] 1999 Zoster Vaccines (1 of 2) 1999 Falls Risk Assessment 09/16/2022 Hepatitis C Screening 09/16/2022 Osteoporosis Screening (Bone Density Screening) 09/16/2022 Social Influencers of Health Screening 09/16/2022 RSV Immunization Adult Patients (1 - 1-dose 75+ series) 2024 COVID-19 Vaccine ( - 2023- season) 2024 Depression Screening 10/14/2024 Influenza Vaccine (#1) 2025 Breast Cancer Screening Discontinued 07/21/20, 04/08/2023, [...] Procedure Name Priority Date/Time Associated Diagnosis Comments [facility] SCREENING DIGITAL Routine 07/21/2024 4:48 PM EDT Encounter for screening mammogram for malignant neoplasm of breast from Last 3 Months or Most Recently Relevant to Health Maintenance Results * [facility] SCREENING DIGITAL (07/21/2024 4:48 PM EDT) Anatomical Region Laterality Modality Mammography 07/21/2024 7:35 AM EDT Narrative 07/21/2024 4:48 PM EDT [facility] Diagnostic Imaging Department [address] [place] [address] Patient: SALIMA NOLASCO /Age/Sex: 1950 - 74 - F Unit#: [id number] Location/Status: SPDIMAM/REG CLI Mnemonic/Ordering Site: [facility] Ordering Physician: CARISA MCKEON MD Josie Screening Digital - 07/21/24805 Report Status:Signed EXAM: SCREENING MAMMOGRAPHY, BILATERAL HISTORY: SCREENING. Previous right breast biopsy. Previous report indicates excisional left breast biopsy COMPARISON: 04/08/2023, 01/18/2022, 12/29/2020 TECHNIQUE: Synthesized CC and MLO projections of each breast. Tomosynthesis of each breast in the CC and [...] Date/Time: 07/21/24 1353 Sign date/Time: 07/21/24 1648 Procedure Note Pilo Hooper MD - 08/11/2024 [facility] Diagnostic Imaging Department [address] [place] [address] Patient: GAURAVSALIMA /Age/Sex: 1950 - 74 - F Unit#: [id number] Location/Status: SPDIMAM/REG CLI Mnemonic/Ordering Site: [facility] Ordering Physician: CARISA MCKEON MD Josie Screening Digital - 07/21/24 - 805 Report Status:Signed EXAM: SCREENING MAMMOGRAPHY, BILATERAL HISTORY: [...] Anne HOOPER BRET MD Dic Date/Time: 07/21/24 2237 Sign date/Time: 07/21/24 4441 us Carisa Mckeon MD IMG BI PROCEDURES Final Result from Last 3 Months or Most Recently Relevant to Health Maintenance
[2025-06-01 08:02] LABS: MANUAL DIFF FLAG NO
[2025-06-01 08:12] LABS: Hematocrit 37.0 % (37.0-47.0); Hemoglobin 12.8 g/dl (12.0-16.0); Imm Gran Abs Auto 0.02 X10*3/uL (0.00-0.03); Imm Gran Pct Auto 0.4 % (0.0-0.4); Lymphocytes Absolute Auto 1.0 X10*3/uL (1.2-4.9); Mean Corpuscular HGB Conc 34.6 g/dl (31.0-35.0); Mean Corpuscular Hemoglobin 33.0 pg (27.0-33.0); Mean Corpuscular Volume 95.4 fL (80.0-98.0); NRBC Abs Auto 0.000 X10*3/uL (0.0-0.012); NRBC Pct Auto 0.0 /100WBC (0.0-0.2); Platelet Count 177 X10*3/uL (160-400); Red Blood Count 3.88 X10*6/uL (4.20-5.50); White Blood Count 4.6 X10*3/uL (4.8-10.8)
[2025-06-01 08:30] LABS: Hemoglobin A1C 112.3518 umol/L; Total Hemoglobin (HGBA1C) 3344.7285 umol/L
[2025-06-01 08:36] LABS: Blood Urea Nitrogen 8 mg/dL (9-16)
[2025-06-01 08:47] LABS: Alanine Aminotransferase 17 U/L (0-31); Albumin Level 4.7 g/dL (3.5-5.0); Alkaline Phosphatase 47 U/L (39-117); Anion Gap 14 (12-20); Aspartate Amino Transferase 23 U/L (5-31); Blood Urea Nitrogen 7 mg/dL (9-16); Calcium 9.5 mg/dL (8.4-10.2); Carbon Dioxide 30 mmol/L (22-29); Chloride 94 mmol/L (96-108); Estimated Glomerular Filt Rate > 60; Iron 84 mcg/dL (30-160); Magnesium 1.5 mg/dL (1.6-2.6); Percent Iron Saturation 29 % (15-50); Potassium 4.8 mmol/L (3.3-5.1); Sodium 133 mmol/L (135-145); Total Iron Binding Capacity 286 mcg/dL (228-428); Total Protein 7.3 g/dL (6.5-8.0); Unsaturated Iron Binding 202 ug/dL
[2025-06-01 09:01] LABS: Ferritin 104 ng/mL (10-250)
[2025-06-01 09:12] LABS: Folate 10.5 ng/mL (> or = 4.0); Vitamin B12 224 pg/mL (200-900)
[2025-06-02 07:18] LABS: Lyme Abs Screen <0.90 index
[2025-06-04 10:54] LABS: Anti Nuclear Antibody Screen NEGATIVE (NEGATIVE)
== END 2025-06-01 07:30 | disposition home or self-care (01) ==
LOC: HO.LAB 07:29
PROVIDERS: Internal Medicine Nephrology; Visit Provider Nurse Practitioner Family
DX: E11.42 Type 2 diabetes mellitus with diabetic polyneuropathy (principal); I10 Essential (primary) hypertension; R25.2 Cramp and spasm; D64.9 Anemia, unspecified; M79.2 Neuralgia and neuritis, unspecified; E51.9 Thiamine deficiency, unspecified; E87.1 Hypo-osmolality and hyponatremia
CPT/HCPCS: 36415; 80053; 82607; 82728; 82746; 83036; 83090; 83540; 83735; 83921; 84207; 84425; 84520; 85025; 85652; 86038; 86140; 86617; 86618

== ENCOUNTER 2025-06-09 09:08 | Outpatient (AMB) | payer MEDICARE, SELFPAY ==
--- OUTSIDE RECORDS SUMMARY | 2024-07-16 04:37 | XMS_ITS | Continuity of Care Document ---
Author Organization [facility] Address [address] [place] [address] Dr Pearson [address] [place] [address] Phone Care Team Providers Care Flavor Maker Name Role Phone Ciera CHAPA, Violeta Unavailable Unavailable Allergies, Adverse Reactions, Alerts Substance Reaction Status Criticality No Known Allergies Active No Inform ation Procedures Procedure Date Office/Outpt E&M Established 15 Mins- CT & [place] Duplex Scan-extrem Veins; Comp- CT & [place] Duplex Scan-extrem Veins; Uni/ CT & [place] A Varithena, Single Truncal Vein - CT & [place] Duplex Scan-extrem Veins; Uni/ CT & [place] A Varithena, Single Truncal Vein - CT & [place] Endovenous Laser, 1st Vein- CT & [place] Offic/outpt E&m Estab 5 Min Trial- Telem edicine CT & [place] Office/Oupt E&M New Pt 45 Mins- CT & [place] Surgical Stockings CVR Reveal Thigh High 20-30 Duplex Scan-extrem Veins; Comp- CT & [place] Advance Directives Directive Yes / No Effective Date File Name No Information Encounters Encounter Description Practice Location Reason(s) For Visit Diagnoses Date Provider Providers Copied on Encounter [facility], [address] [place] [address] Dr Pearson [address], [place], [id number], [place] tel:[phone] [facility] No Information 4 Ciera Mcdaniel. [address] [facility] [facility], [place], [place], [id number] , [place]. tel: [phone] Office/Outpt E&M Established 15 Mins- [place] & [place] [facility], [address] [place] [address] [facility] [address] [place], [id number], [place] tel:[phone] CVR - [facility] Venous insufficiency (chronic) (peripheral)Ty pe 2 diabetes mellitus without complicationsE ssential (primary) hypertension Jun- 4 Krunal CHAPA RVT, RPVI Robert. [address] [place] [address], [place], [id number] , [place]. [phone] Referring Provider: Carisa Courtney MD, [address] [place] [address] , [place], [address]. tel:[phone] [facility], [address] [place] [address] [facility] [address] [place], [id number], [place] tel:[phone] CVR - [facility] Chronic venous hypertension (idiopathic) with other complications of bilateral lower extremity Jun- 4 Krunal CHAPA RVT, JT Howell. [address] [place] [address], [place], [id number] , [place]. tel:[phone] Referring Provider: Dante Hector MD, RVT, JT, [address] [place] [address], [place], [address] . tel:[phone] [facility], [address] [place] [address] [facility] [address] [place], [id number], [place] tel:[phone] CVR - [facility] Encounter for follow-up examination after completed treatment for conditions other than malignant nePain in left lower leg 4 Krunal CHAPA RVT, RPVI Robert. [address] [place] [address], [place] [address], [place], [id number] , [place]. tel:[phone] Referring Provider: Dante Hector MD, RVT, JT, [address] [place] [address], [place], [address] . tel:[phone] [facility], [address] [place] [address] Dr Pearson [address]Suite [place], [id number], tel:[phone] CVR - [place] - [place] Chronic venous hypertension (idiopathic) with inflammation of left lower extremity 4 Krunal CHAPA RVT, RPVI Robert. [address] [place] [address], [facility] [place], [place], [id number] , [place]. [phone] [facility], [address] [place] [address] Dr Pearson [address] [place], [id number], [place] tel:[phone] CVR - [place] Encounter for follow-up examination after completed treatment for conditions other than malignant nePain in right leg 4 Krunal CHAPA RVT, RPVI Robert. [address] [place] [address], [facility] [place], [id number] , [place]. [phone] Referring Provider: Dante Hector MD, RVT, RPVI, [address] [place] [address], [facility] [place], [address] . tel:[phone] [facility], [address] [place] [address] Dr Pearson [address] [place], [id number], [place] tel:[phone] CVR - [place] - [place] Varicose veins of right lower extremity with other complications 4 Krunal CHAPA RVT, RPVI Robert. [address] [place] [address], [facility], [id number] , [place]. [phone] [facility], [address] [place] [address] Dr Pearson [address] [place], [id number], [place] tel:[phone] CVR - [place] Chronic venous hypertension (idiopathic) with inflammation of right lower extremity 4 Krunal CHAPA RVT, RPVI Robert. [address] [place] [address], [facility] [place], [id number] , [place]. tel:[phone] Offic/outpt E&m Estab 5 Min Trial- Telemedicine CT & [place] [facility], [address] [place] [address] Dr Pearson 1000[address]havi 1000[place], [id number], [place] tel:[phone] CVR - [facility] Chronic venous hypertension (idiopathic) with other complications of bilateral lower extremityRestl ess legs syndromeLymphe sindy, not elsewhere classifiedType 2 diabetes mellitus without complicationsE ssential (primary) hypertensionPr uritus, unspecifiedHer editary lymphedema 4 Krunal CHAPA RVT, JT Howell. [address] [place] [address], [place], [id number] , [place]. tel:[phone] [facility], [address] [place] [address] Dr Pearson [address], [id number], [place] tel:[phone] CVR - [facility] No Information 4 Krunal CHAPA RVT, JT Howell. [facility] [place] [address], [place], [id number] , [place]. tel:[phone] Office/Oupt E&M New Pt 45 Mins- CT & [place] [facility], [address] [place] [address] Dr Pearson 1000Neo [place], [id number], [place] tel:[phone] CVR - [facility] Chronic venous hypertension (idiopathic) with other complications of bilateral lower extremityType 2 diabetes mellitus without complicationsR estless legs syndromeEssent ial (primary) hypertensionLo calized edema 4 Krunal CHAPA RVT, RPVI Robert. [facility] [place] [address], [place], [id number] , [place]. tel:[phone] [facility], [address] [place] [address] Dr Pearson 1000SuNeo conner [place], [id number], [place] tel:[phone] CVR - [facility] Chronic venous hypertension (idiopathic) with other complications of bilateral lower extremity 4 Krunal MDMUNA RPVI Robert. [address] [facility], [address], [place], [id number] , . tel:[phone] Referring Provider: Dante Hector MD, MUNA, JT, [address] [facility] [address], [place], [address] . tel:[phone] Family History Family Member Type Diagnosis Age At Onset No Information Payers Payer name Insurance type Covered libertarian ID Authoriza tion(s) Medicare MIRELLA WATTS [id number] Social History Type Description Quantity Date Captured Comments Sex Female Smoking Status No Information Chief Complaint And Reason For Visit No Information Reason For Referral Reason For Referral No Information Plan Of Treatment Date Type Action Status Goal Tobacco cessation counseling completed Goal Diet education completed Goal Tobacco cessation counseling completed Goal Tobacco cessation counseling completed Goal Diet education completed Referral Ordered: Weight management: Referral to physician timeframe: 3 Months (related to Body mass index (BMI) 25.0-25.9, adult) ordered Referral Ordered: Weight management: Referral to physician timeframe: 3 Months (related to Body mass index (BMI) 25.0-25.9, adult) ordered History Of Present Illness Encounter Date Complaint History Of Prese nt Illness No Information Functional Status Date Functional Assessmen t No Information Instructions Date Instruction Additional Infor mation Lifestyle education Related to B bhavin mass index (BMI) 25.0-25.9, adult Giving Encouragement to exercise Related to Body mass index (BMI) 25.0-25.9, adult Diet education Related to Body mass index (BMI) 25.0-25.9, adult Patient education booklet given Related to Venous insufficiency (chronic) (peripheral) Compression stocking usage as conservative measure Related to Venous insufficiency (chronic) (peripheral) Pre and post instruc tions reviewed and provided Related to Chronic venous hypertension (idiopathic) with other complications of bilateral lower extremity Patient education booklet given Related to Chronic venous hypertension (idiopathic) with other complications of bilateral lower extremity Pre and post instruc tions reviewed and provided Related to Chronic venous hypertension (idiopathic) with other complications of bilateral lower extremity Patient education booklet given Related to Chronic venous hypertension (idiopathic) with other complications of bilateral lower extremity Lifestyle education Related to B bhavin mass index (BMI) 25.0-25.9, adult Giving Encouragement to exercise Related to Body mass index (BMI) 25.0-25.9, adult Diet education Related to Body mass index (BMI) 25.0-25.9, adult Assessments Type Assessment Date No Information Patient Care Teams Name Effective Dates (start - stop) Status Members No Information
--- NOTE | 2025-06-09 09:23 | HO.NEPHOV ---
Vital Signs 06/09/25 09:24 Height 5 ft 2 in Weight 126 lb BMI 23.0 BP 144/70 H Blood Pressure Location Lt brachial Position Sitting Intake Visit Reasons: 3 MO FU-Conf Campus Manager Required: No Accompanied by: Self / Same As Patient Allergies lisinopril Adverse Reaction (Verified 06/09/25 09:24) Cough HPI Comments Details: Salima Floyd in follow up for hyponatremia. She has H/O low sodium in the past. She denies nausea, vomiting, diarrhea, orthostatic symptoms, palpitations, edema, liver disease, proteinuria, advanced CKD. She is a diabetic and is not has any H/O depression or being on anti depressants. She has no H/O hyperkalemia or uncontrolled thyroid disorders. She denies drinking beer or excess free water. She has no H/O malignancy, weakness or mental status changes. She has no H/O HCTZ intake even though she has hypertension. She has H/O hypomagnesemia. [facility] Medical History Anemia Neuropathy Diabetes Osteoarthritis Allergic rhinitis CAD (coronary artery disease) Glaucoma DM II (diabetes mellitus, type II), controlled High cholesterol High blood pressure GERD (gastroesophageal reflux disease) Surgical History History of eye surgery History of heart artery stent History of tubal ligation History of tonsillectomy Social History Are you a primary multi care technician to a significant other at home: No Do you presently have visiting nurse or other home services: No Patient Tobacco Use Status: Former Tobacco user Review of Systems Const All systems reviewed & are unremarkable except as noted in HPI and below Physical Exam Vital Signs: Last Vital Signs BP 144/70 H 06/09/25 09:24 BMI result Body Mass Index 23.0 Const General: comfortable and no acute distress Orientation/consciousness: patient oriented x3 HEENT Head: Yes normocephalic Mouth: Normal oral and palatal mucosa present Eyes EOM: EOMs intact bilaterally Neck Neck: Yes supple Resp Auscultation: clear to auscultation bilaterally Cardio Jugular venous distension: no JVD Rate: regular rate GI Palpation (GI): Soft to palpation Auscultation: normal bowel sounds General: Yes no CVA tenderness Back/Spine/Pelvis Back: no CVA tenderness Skin General skin exam: no rashes or lesions noted Neuro General: patient oriented x3 and moves all extremities Extrem General: Yes no pedal edema Results Reviewed Nephrology Results: Hgb, (12.0-16.0) 12.8 g/dl 06/01/25 WBC, (4.8-10.8) 4.6 X10*3/uL L 06/01/25 Plt Count, (160-400) 177 X10*3/uL 06/01/25 Sodium, (135-145) 133 mmol/L L 06/01/25 Potassium, (3.3-5.1) 4.8 mmol/L 06/01/25 Chloride, (96-108) 94 mmol/L L 06/01/25 Carbon Dioxide, (22-29) 30 mmol/L H 06/01/25 BUN, (9-16) 7 mg/dL L 06/01/25 Creatinine, (0.5-1.4) 0.55 mg/dL 06/01/25 Calcium, (8.4-10.2) 9.5 mg/dL Δ 06/01/25 Urine Protein, (Neg-Trace) Negative mg/dL 01/13/25 Assessment & Plan Assessment & Plan (1) Hyponatremia: Code(s): E87.1 - Hypo-osmolality and hyponatremia Category: Medical (2) High blood pressure: Code(s): I10 - Essential (primary) hypertension Category: Medical Qualifiers: Hypertension type: primary hypertension Qualified Code(s): I10 - Essential (primary) hypertension Plan Salima likely has excessive ADH. She is euvolemic. She has H/O fluctuating low sodium for sometime. She was asked to restrict PO free water intake. There is no indication for sodium chloride tablets or PO Urea. She is hypertensive and is on multiple medications which is keeping her BP at goal at home.She has H/O hypomagnesemia and she is on replacement. I shall work up in more detail if her low magnesium levels persists. Answered all questions and follow up was given Orders: Orders Electrolytes 4 Months E87.1 - Hypo-osmolality and hyponatremia, I10 - Essential (primary) hypertension Coding Level of Care Code Est Pt Level 4 (12963) Diagnoses Hyponatremia E87.1 Primary hypertension I10 Hypertension type: primary hypertension
[2025-06-09 09:24] VITALS: BP 144/70; BMI 23.0
--- OUTSIDE RECORDS SUMMARY | 2025-06-09 09:37 | XMS_ITS | Clinical Summary ---
Author Organization [facility] ity Address [address] [place] [address] Care Team Providers Care Electric Stove Mechanic Name Role Phone Unavailable Primary Care Provider [...] Procedure Name Priority Date/Time Associated Diagnosis Comments [facility] SCREENING DIGITAL Routine 07/21/2024 4:48 PM EDT Encounter for screening mammogram for malignant neoplasm of breast from Last 3 Months or Most Recently Relevant to Health Maintenance Results * [facility] SCREENING DIGITAL (07/21/2024 4:48 PM EDT) Anatomical Region Laterality Modality Mammography 07/21/2024 7:35 AM EDT Narrative 07/21/2024 4:48 PM EDT [facility] Diagnostic Imaging Department [address] [place] [address] Patient: SALIMA NOLASCO /Age/Sex: 1950 - 74 - F Unit#: [id number] Location/Status: SPDIMAM/REG CLI Mnemonic/Ordering Site: [facility] Ordering Physician: CARISA MCKEON MD Josie Screening [...] Procedure Note Pilo Hooper MD - 08/11/2024 [facility] Diagnostic Imaging Department [address] [place] [address] Patient: GAURAVSALIMA /Age/Sex: 1950 - 74 - F Unit#: [id number] Location/Status: SPDIMAM/REG CLI Mnemonic/Ordering Site: [facility] Ordering Physician: CARISA MCKEON MD Josie Screening [...] Anne HOOPER BRET MD Dic Date/Time: 07/21/24 9700 Sign date/Time: 07/21/24 6269 us Carisa Mckeon MD IMG BI PROCEDURES Final Result from Last 3 Months or Most Recently Relevant to Health Maintenance
--- OUTSIDE RECORDS SUMMARY | 2025-06-09 09:38 | XMS_ITS | Patient Health Record ---
Author Organization [facility] Address [address] [place] [address] Care Team Providers Care Stoper Name Role Phone NONE, NONE Primary Care Provider Dante Quiroz [phone] Reason For Referral No Information Plan Of Treatment No Information
== END 2025-06-09 09:41 | disposition home or self-care (01) ==
LOC: HO.HKA 09:09
PROVIDERS: PCP Internal Medicine; Visit Provider Internal Medicine Nephrology
DX: E87.1 Hypo-osmolality and hyponatremia (principal); I10 Essential (primary) hypertension
CPT/HCPCS: 99214

== ENCOUNTER → 2025-06-09 09:08 | Outpatient (BNVA) | payer MEDICARE, SELFPAY | PROVIDERS: PCP Internal Medicine; Visit Provider Internal Medicine Nephrology | DX: E87.1 Hypo-osmolality and hyponatremia (principal); I10 Essential (primary) hypertension | CPT/HCPCS: 99212 ==

== ENCOUNTER 2025-09-27 07:32 | Outpatient (REF) | payer MEDICARE, SELFPAY ==
[2025-09-27 08:34] LABS: Alanine Aminotransferase 17 U/L (0-31); Albumin Level 4.6 g/dL (3.5-5.0); Alkaline Phosphatase 47 U/L (39-117); Anion Gap 13 (12-20); Aspartate Amino Transferase 22 U/L (5-31); Blood Urea Nitrogen 6 mg/dL (9-16); Calcium 9.4 mg/dL (8.4-10.2); Carbon Dioxide 29 mmol/L (22-29); Chloride 95 mmol/L (96-108); Estimated Glomerular Filt Rate > 60; Potassium 4.7 mmol/L (3.3-5.1); Sodium 132 mmol/L (135-145); Total Protein 6.9 g/dL (6.5-8.0)
[2025-09-27 09:09] LABS: Folate 13.4 ng/mL (> or = 4.0)
== END 2025-09-27 07:33 | disposition home or self-care (01) ==
LOC: HO.10HDL 07:32
PROVIDERS: Nurse Practitioner Family; Visit Provider Internal Medicine Nephrology
DX: I10 Essential (primary) hypertension (principal); E11.42 Type 2 diabetes mellitus with diabetic polyneuropathy
CPT/HCPCS: 36415; 80053; 82746

== ENCOUNTER 2025-10-06 09:06 | Outpatient (AMB) | payer MEDICARE, SELFPAY ==
--- OUTSIDE RECORDS SUMMARY | 2025-10-06 09:12 | XMS_ITS | Patient Health Record ---
Author Organization [facility] Address [address] [place] [address] Care Team Providers Care Quality Control Industrial Engineer Name Role Phone NONE, NONE Primary Care Provider Dante Quiroz [phone] Reason For Referral No Information Plan Of Treatment No Information
--- OUTSIDE RECORDS SUMMARY | 2025-10-06 09:12 | XMS_ITS | Clinical Summary ---
Author Organization [facility] ity Address [address] [place] [address] Care Team Providers Care Content Analyst Name Role Phone Unavailable Primary Care Provider [...] Patients (1 - 1-dose 75+ series) 2024 Depression Screening 10/14/2024 COVID-19 Vaccine ( - 2024- season) 2025 Influenza Vaccine (#1) 2025 Breast Cancer Screening [...] Procedure Name Priority Date/Time Associated Diagnosis Comments [facility] SCREENING DIGITAL Routine 07/21/2024 4:48 PM EDT Encounter for screening mammogram for malignant neoplasm of breast from Last 3 Months or Most Recently Relevant to Health Maintenance Results * [facility] SCREENING DIGITAL (07/21/2024 4:48 PM EDT) Anatomical Region Laterality Modality Mammography 07/21/2024 7:35 AM EDT Narrative 07/21/2024 4:48 PM EDT [facility] Diagnostic Imaging Department [address] [place] [address] Patient: SALIMA NOLASCO /Age/Sex: 1950 - 74 - F Unit#: [id number] Location/Status: SPDIMAM/REG CLI Mnemonic/Ordering Site: [facility] Ordering Physician: CARISA MCKEON MD [...] Procedure Note Pilo Hooper MD - 08/11/2024 [facility] Diagnostic Imaging Department [address] [place] [address] Patient: GAURAVSALIMA /Age/Sex: 1950 - 74 - F Unit#: [id number] Location/Status: SPDIMAM/REG CLI Mnemonic/Ordering Site: [facility] Ordering Physician: CARISA MCKEON MD [...] Anne HOOPER BRET MD Dic Date/Time: 07/21/24 0525 Sign date/Time: 07/21/24 8936 us Carisa Mkceon MD IMG BI PROCEDURES Final Result from Last 3 Months or Most Recently Relevant to Health Maintenance
--- NOTE | 2025-10-06 09:31 | HO.NEPHOV_ITS ---
Vital Signs 10/06/25 09:32 Height 5 ft 2 in Weight 128 lb BMI 23.4 BP 116/72 Blood Pressure Location Rt brachial Position Sitting Pulse 62 Pulse Source Pulse Oximeter Pulse Oximetry (%) 94 Oxygen Delivery Method Room Air Intake Visit Reasons: 3mon f/u w/labs Social Services Manager Required: No Accompanied by: Self / Same As Patient Allergies lisinopril Adverse Reaction (Verified 06/09/25 09:24) Cough HPI Comments Details: Salima Floyd in follow up for hyponatremia. She has H/O low sodium in the past. She denies nausea, vomiting, diarrhea, orthostatic symptoms, palpitations, edema, liver disease, proteinuria, advanced CKD. She is a diabetic and is not has any H/O depression or being on anti depressants. She has no H/O hyperkalemia or uncontrolled thyroid disorders. She denies drinking beer or excess free water. She has no H/O malignancy, weakness or mental status changes. She has no H/O HCTZ intake even though she has hypertension. She has H/O hypomagnesemia. [facility] Medical History Anemia Neuropathy Diabetes Osteoarthritis Allergic rhinitis CAD (coronary artery disease) Glaucoma DM II (diabetes mellitus, type II), controlled High cholesterol High blood pressure GERD (gastroesophageal reflux disease) Surgical History History of eye surgery History of heart artery stent History of tubal ligation History of tonsillectomy Social History Are you a primary customer care professional to a significant other at home: No Do you presently have visiting nurse or other home services: No Patient Tobacco Use Status: Former Tobacco user Review of Systems Const All systems reviewed & are unremarkable except as noted in HPI and below Physical Exam Vital Signs: Last Vital Signs Pulse 62 10/06/25 09:32 BP 116/72 10/06/25 09:32 Pulse Ox 94 10/06/25 09:32 Oxygen Delivery Method Room Air 10/06/25 09:32 BMI result Body Mass Index 23.4 Const General: comfortable and no acute distress Orientation/consciousness: patient oriented x3 HEENT Head: Yes normocephalic Mouth: Normal oral and palatal mucosa present Eyes EOM: EOMs intact bilaterally Neck Neck: Yes supple Resp Auscultation: clear to auscultation bilaterally Cardio Jugular venous distension: no JVD Rate: regular rate GI Palpation (GI): Soft to palpation Auscultation: normal bowel sounds General: Yes no CVA tenderness Back/Spine/Pelvis Back: no CVA tenderness Skin General skin exam: no rashes or lesions noted Neuro General: patient oriented x3 and moves all extremities Extrem General: Yes no pedal edema Results Reviewed Nephrology Results: Hgb, (12.0-16.0) 12.8 g/dl 06/01/25 WBC, (4.8-10.8) 4.6 X10*3/uL L 06/01/25 Plt Count, (160-400) 177 X10*3/uL 06/01/25 Sodium, (135-145) 132 mmol/L L 09/27/25 Potassium, (3.3-5.1) 4.7 mmol/L 09/27/25 Chloride, (96-108) 95 mmol/L L 09/27/25 Carbon Dioxide, (22-29) 29 mmol/L 09/27/25 BUN, (9-16) 6 mg/dL L 09/27/25 Creatinine, (0.5-1.4) 0.53 mg/dL 09/27/25 Calcium, (8.4-10.2) 9.4 mg/dL 09/27/25 Urine Protein, (Neg-Trace) Negative mg/dL 01/13/25 Assessment & Plan Assessment & Plan (1) Hyponatremia: Code(s): E87.1 - Hypo-osmolality and hyponatremia Category: Medical (2) High blood pressure: Code(s): I10 - Essential (primary) hypertension Category: Medical Qualifiers: Hypertension type: primary hypertension Qualified Code(s): I10 - Essential (primary) hypertension Plan Salima likely has excessive ADH. She is euvolemic. She has H/O fluctuating low sodium for sometime. She was asked to restrict PO free water intake. There is no indication for sodium chloride tablets or PO Urea. She is hypertensive and is on multiple medications which is keeping her BP at goal at home.She has H/O hypomagnesemia and she was on replacement. Answered all questions and follow up was given Orders: Orders Magnesium 6 Months E87.1 - Hypo-osmolality and hyponatremia, I10 - Essential (primary) hypertension Blood Urea Nitrogen 6 Months E87.1 - Hypo-osmolality and hyponatremia, I10 - Essential (primary) hypertension Electrolytes 6 Months E87.1 - Hypo-osmolality and hyponatremia, I10 - Essential (primary) hypertension Creatinine 6 Months E87.1 - Hypo-osmolality and hyponatremia, I10 - Essential (primary) hypertension Coding Level of Care Code Est Pt Level 4 (21173) Diagnoses Hyponatremia E87.1 Primary hypertension I10 Hypertension type: primary hypertension
[2025-10-06 09:32] VITALS: BP 116/72; PULSE 62; O2SAT 94; BMI 23.4
== END 2025-10-06 09:46 | disposition home or self-care (01) ==
LOC: HO.HKA 09:06
PROVIDERS: PCP Internal Medicine; Visit Provider Internal Medicine Nephrology
DX: E87.1 Hypo-osmolality and hyponatremia (principal); I10 Essential (primary) hypertension
CPT/HCPCS: 99214

== ENCOUNTER → 2025-10-06 09:06 | Outpatient (BNVA) | payer MEDICARE, SELFPAY | PROVIDERS: PCP Internal Medicine; Visit Provider Internal Medicine Nephrology | DX: E87.1 Hypo-osmolality and hyponatremia (principal); I10 Essential (primary) hypertension; Z95.5 Presence of coronary angioplasty implant and graft; Z79.01 Long term (current) use of anticoagulants; Z87.891 Personal history of nicotine dependence | CPT/HCPCS: 99212 ==